=== PATIENT | male | born 1940 | race Caucasian/White ===

== ENCOUNTER 2016-10-11 20:51 | Inpatient (IN) | payer MEDICARE, OTHER ==
[~2016-10-11] VITALS: Ht 177.8 cm; Wt 82.1 kg
[2016-10-11 20:51] VITALS: BP 171/84; PULSE 67; RESP 18; TEMP 98.4; O2SAT 100
[2016-10-11 21:00] VITALS: BP 160/74; PULSE 64; RESP 16; O2SAT 100
[2016-10-11] MEDS ORDERED: FERR325T PO (21:25)
[2016-10-11] MEDS ORDERED: FAMO20TA2 PO (21:25)
[2016-10-11] MEDS ORDERED: POLY99.0 EACH EYE (21:25)
[2016-10-11] MEDS ORDERED: SPIRCAP INH (21:25)
[2016-10-11] MEDS ORDERED: TYLE325T PO (21:25)
[2016-10-11] MEDS ORDERED: TRAM50TA PO (21:25)
[2016-10-11] MEDS ORDERED: IPRASOL INH (21:25)
[2016-10-11] MEDS ORDERED: CYMB60CA PO (21:25)
[2016-10-11] MEDS ORDERED: GLIP5TAB8 PO (21:25)
[2016-10-11] MEDS ORDERED: LISI-519 PO (21:25)
[2016-10-11] MEDS ORDERED: GABA300C5 PO (21:25)
[2016-10-11] MEDS ORDERED: MONT10TA2 PO (21:25)
[2016-10-11] MEDS ORDERED: CARV3.125 PO (21:25)
[2016-10-11] MEDS ORDERED: XARE10TA PO (21:25)
[2016-10-11] MEDS ORDERED: FINA5TAB2 PO (21:25)
[2016-10-11] MEDS ORDERED: LIPI10TA PO (21:25)
[2016-10-11] MEDS ORDERED: LEVE500 PO (21:25)
--- NOTE | 2016-10-11 21:39 | PD ---
HPI Chief Complaint: Altered Mental Status Time Seen by Provider: 21:35 Travel History International Travel<30 days: No Contact w/Intl Traveler<30days: No Traveled to known affect area: No History of Present Illness HPI The patient is a 76-year-old male who was sent from [facility] were is rehabilitating for a left shoulder fracture who became confused and combative. Apparently, his primary care physician wanted blood work done. He has not had any fever. He has not had any nausea, vomiting or diarrhea. He has a history of COPD and is on 2 L nasal cannula continuously. He does have a history of efn-hlycsle-tevjtzisu diabetes. He has had a stroke in the past and is on Xarelto. The patient has had a melanoma removed and radiated on his face approximately 4 years ago. He has been complaining of a headache, he never gets headaches according to the . PFSH Past Medical History Alzheimer's Disease: Yes Anemia: Yes Arthritis: Yes Anxiety: Yes (PTSD: ) Depression: Yes Cancer: Yes (SKIN: MALIGNANT MELANOMA) Cardiac Catheterization: Yes Cardiovascular Problems: Yes (CARDIAC ARREST: Jun) High Cholesterol: Yes Chest Pain: Yes COPD: Yes (WEARS 2-3 LITERS NASAL CANNULA CONTINUOUSLY) Cerebrovascular Accident: Yes (CVA: JANUARY 2016 WITH RESULTING MONOPLEGIA OF RIGHT UPPER LIMB) Coronary Artery Disease: Yes Dementia: Yes Diabetes: Yes Patient Takes Glucophage: No Diverticulitis: Yes GERD: Yes Gout: Yes Genitourinary: Yes (CHRONIC KIDNEY DISEASE) Headaches: Yes Hiatal Hernia: Yes Hypertension: Yes Musculoskeletal: Yes (LEFT SHOULDER FX: 07/24/16, SPINAL STENOSIS) Neurologic: Yes (DYSPHASIA) Parkinson's Disease: Yes Reproductive: Yes (RESPIRATORY FAILURE/HYOXEMIA: SEP 20, 2016) Immunizations Current: Yes (SHINGLES:2015) Myocardial Infarction: Yes (JUN 14, 2016) Radiation Therapy: Yes (HEAD FOR SKIN CANCER) Sleep Apnea: Yes (USES TRILOGY CPAP MACHINE) Tetanus Vaccination: < 5 Years Influenza Vaccination: Yes Past Surgical History Cholecystectomy: Yes Coronary Stent: Yes Eye Surgery: Yes (RIGHT CATARACT) Other Surgery: Yes (HIATAL HERNIA REPAIR) Social History Alcohol Use: No Tobacco Use: No (QUIT CIGARS AND PIPE IN HIS 60'S) Substance Use: No Allergies-Medications (Allergen,Severity, Reaction): Coded Allergies: No Known Allergies (Unverified , 10/11/16) Reported Meds & Prescriptions Reported Meds & Active Scripts Active Reported Duoneb (Ipratropium-Albuterol Neb) 0.5-2.5 Mg/3 Ml Neb 1 Nebule INH Q6HR NEB Coreg (Carvedilol) 3.125 Mg Tab 3.125 Mg PO Q12HR Artificial Tears Opth Drops (Polyvinyl Alcohol) 1.4% Soln 1-2 Drop EACH EYE Q8HR PRN Singulair (Montelukast Sodium) 10 Mg Tab 10 Mg PO DAILY Finasteride 5 Mg Tab 5 Mg PO DAILY Do not crush. Glipizide 5 Mg Tab 5 Mg PO DAILY Take 30 minutes before a meal Spiriva Handihaler (Tiotropium Inh) 18 Mcg Cap 18 Mcg INH DAILY 1 capsule = 18 mcg Lipitor (Atorvastatin Calcium) 10 Mg Tab 10 Mg PO HS Cymbalta DR (Duloxetine HCl) 60 Mg Capdr 60 Mg PO HS Famotidine 20 Mg Tab 20 Mg PO DAILY Lisinopril 5 Mg Tab 5 Mg PO DAILY Gabapentin 300 Mg Cap 300 Mg PO Q8HR Keppra (Levetiracetam) 500 Mg Tab 500 Mg PO Q12HR Xarelto (Rivaroxaban) 10 Mg Tab 10 Mg PO DAILY Tylenol (Acetaminophen) 325 Mg Tab 650 Mg PO Q4H PRN Tramadol (Tramadol HCl) 50 Mg Tab 50 Mg PO Q6H PRN Ferrous Sulfate 325 Mg Tab 325 Mg PO TID Duoneb (Ipratropium-Albuterol Neb) 0.5-2.5 Mg/3 Ml Neb 1 Nebule INH Q6HR NEB Review of Systems Except as stated in HPI: all other systems reviewed are Neg Physical Exam Narrative GENERAL: The patient is elderly, confused to location and still thinks it is 2016. He does answer questions quickly and appropriately. His vital signs show blood pressure 171/84 but are otherwise normal. His oximetry is 100% on 2 L nasal cannula. SKIN: Warm and dry. No skin rash is noted. HEAD: Atraumatic. Normocephalic. EYES: Pupils equal and round. No scleral icterus. No injection or drainage. ENT: No nasal bleeding or discharge. Mucous membranes pink and moist. NECK: Trachea midline. No JVD. CARDIOVASCULAR: Regular rate and rhythm. No murmur appreciated. RESPIRATORY: No accessory muscle use. Clear to auscultation. Breath sounds equal bilaterally. GASTROINTESTINAL: Abdomen soft, non-tender, nondistended. Hepatic and splenic margins not palpable. MUSCULOSKELETAL: No obvious deformities. No clubbing. No cyanosis. No edema. NEUROLOGICAL: Awake and alert. No obvious cranial nerve deficits. Motor grossly within normal limits. Normal speech. PSYCHIATRIC: Appropriate mood and affect; insight and judgment normal. Data Data Last Documented VS Vital Signs Date Time Temp Pulse Resp B/P Pulse Ox O2 Delivery O2 Flow Rate FiO2 10/11/16 23:37 98.3 59 18 156/68 99 Nasal Cannula 2 Orders Complete Blood Count With Diff (10/11/16 21:39) Comprehensive Metabolic Panel (10/11/16 21:39) Ckmb (Isoenzyme) Profile (10/11/16 21:39) Troponin I (10/11/16 21:39) Urinalysis - C+S If Indicated (10/11/16 21:39) Chest, Pa & Lat (10/11/16 21:39) Ct Brain W/O Iv Contrast(Rout) (10/11/16 21:39) Cath For Specimen (10/11/16 22:08) Urine Culture (10/11/16 21:55) Electrocardiogram (10/11/16 ) Labs Laboratory Tests Test 10/11/16 10/11/16 21:00 21:55 White Blood Count 11.8 TH/MM3 Red Blood Count 3.46 MIL/MM3 Hemoglobin 9.9 GM/DL Hematocrit 32.0 % Mean Corpuscular Volume 92.8 FL Mean Corpuscular Hemoglobin 28.7 PG Mean Corpuscular Hemoglobin 30.9 % Concent Red Cell Distribution Width 14.2 % Platelet Count 492 TH/MM3 Mean Platelet Volume 8.6 FL Neutrophils (%) (Auto) 60.7 % Lymphocytes (%) (Auto) 27.9 % Monocytes (%) (Auto) 9.0 % Eosinophils (%) (Auto) 2.0 % Basophils (%) (Auto) 0.4 % Neutrophils # (Auto) 7.2 TH/MM3 Lymphocytes # (Auto) 3.3 TH/MM3 Monocytes # (Auto) 1.1 TH/MM3 Eosinophils # (Auto) 0.2 TH/MM3 Basophils # (Auto) 0.0 TH/MM3 CBC Comment DIFF FINAL Differential Comment Sodium Level 145 MEQ/L Potassium Level 4.1 MEQ/L Chloride Level 106 MEQ/L Carbon Dioxide Level 31.3 MEQ/L Anion Gap 8 MEQ/L Blood Urea Nitrogen 20 MG/DL Creatinine 0.77 MG/DL Estimat Glomerular Filtration 98 ML/MIN Rate Random Glucose 68 MG/DL Calcium Level 9.4 MG/DL Total Bilirubin 0.3 MG/DL Aspartate Amino Transf 20 U/L (AST/SGOT) Alanine Aminotransferase 19 U/L (ALT/SGPT) Alkaline Phosphatase 229 U/L Total Creatine Kinase 64 U/L Troponin I 0.06 NG/ML Total Protein 7.6 GM/DL Albumin 3.1 GM/DL Urine Collection Type CATH Urine Color YELLOW Urine Turbidity CLEAR Urine pH 5.5 Urine Specific [place] 1.019 Urine Protein TRACE mg/dL Urine Glucose (UA) NEG mg/dL Urine Ketones NEG mg/dL Urine Occult Blood TRACE Urine Nitrite NEG Urine Bilirubin NEG Urine Leukocyte Esterase NEG Urine WBC 0-2 /hpf Urine Squamous Epithelial 0-2 /hpf Cells Urine Bacteria RARE /hpf Urine Hyaline Casts 0-2 /lpf Microscopic Urinalysis Comment CULTURE INDICATED MDM Medical Decision Making Medical Screen Exam Complete: Yes Emergency Medical Condition: Yes Medical Record Reviewed: Yes Interpretation(s) The catheterized urine shows trace blood with rare bacteria and culture is indicated. The chest x-ray shows no evidence of acute cardiopulmonary disease. The complete metabolic profile shows a BUN of 20, alkaline phosphatase of 229 , albumin 3.1, glucose of 68 but is otherwise unremarkable. The cardiac enzymes are normal except the troponin I is 0.06. The CT brain shows edema in the right frontal lobe with vasogenic pattern and concern for underlying mass. A vague nodular opacity measuring about 11 mm in size is noted. Slight vasogenic edema is seen in the left frontal lobe. No midline shift is present. The CBC shows a white count of 11,800 with a hemoglobin of 9.9 and hematocrit of 32.0 and 492,000 platelets but is otherwise unremarkable. The EKG shows sinus rhythm with leftward axis and no acute ST elevation or depression. Differential Diagnosis Hypo-/hyperglycemia, electrolyte disorder, CVA, hypoxemiaunlikely urinary tract infection pneumonia, brain tumorunlikely Narrative Course The CT brain is strongly suggestive for a brain tumor. He does have a history of melanoma in the past. The patient also has an elevated troponin I. He is also on Xarelto because of his coronary artery disease. Dr. Rojas specified that the patient be admitted to [facility]. Physician Communication Physician Communication I discussed the patient with Dr. Romo and Dr. Lawson. The patient will be admitted to Dr. Romo with consultation to the [facility]. Diagnosis Primary Impression: Altered mental status Additional Impressions: Brain tumor Elevated troponin I level Admitting Information Admitting Physician Requests: Admit Bakari Morales MD Oct 11, 2016 21:39
[2016-10-11 22:02] LABS: AUTOMATED NEUTROPHIL # 7.2 TH/MM3 (1.8-7.7); BASOPHIL % 0.4 % (0.0-2.0); EOSINOPHIL # 0.2 TH/MM3 (0-0.4); HEMO FLAGS DIFF FINAL; LYMPH % 27.9 % (9.0-44.0); LYMPHOCYTE # 3.3 TH/MM3 (1.0-4.8); MEAN CELL VOLUME 92.8 FL (80.0-100.0); MEAN CORPUSCULAR HEMOGLOBIN 28.7 PG (27.0-34.0); MEAN CORPUSCULAR HGB CONC 30.9 % (32.0-36.0); NEUT % 60.7 % (16.0-70.0); PLATELET COUNT 492 TH/MM3 (150-450); RED BLOOD COUNT 3.46 MIL/MM3 (4.50-5.90); RED CELL DISTRIBUTION WIDTH 14.2 % (11.6-17.2); WHITE BLOOD COUNT 11.8 TH/MM3 (4.0-11.0)
[2016-10-11 22:08] LABS: BLOOD, URINE TRACE (NEG); GLUCOSE,URINE NEG (NEG); KETONE, URINE NEG (NEG); NITRITE,URINE NEG (NEG); PH, URINE 5.5 (5.0-8.5)
[2016-10-11 22:08] LABS: CHLORIDE 106 MEQ/L (98-107); POTASSIUM 4.1 MEQ/L (3.5-5.1); SODIUM (NA) 145 MEQ/L (136-145)
[2016-10-11 22:12] LABS: ANION GAP 8 MEQ/L (5-15); BICARBONATE 31.3 MEQ/L (21.0-32.0)
[2016-10-11 22:13] LABS: BLOOD UREA NITROGEN 20 MG/DL (7-18)
[2016-10-11 22:15] LABS: AST (GOT) 20 U/L (15-37)
[2016-10-11 22:16] LABS: ALT (GPT) 19 U/L (12-78); GLOMERULAR FILTRATION RATE 98 ML/MIN (>89)
[2016-10-11 22:16] LABS: METHOD OF COLLECTION CATH; URINE COLOR YELLOW (YELLW/STRAW)
[2016-10-11 22:17] LABS: TOTAL BILIRUBIN ADULT 0.3 MG/DL (0.2-1.0)
[2016-10-11 22:18] LABS: HYALINE CAST, URINE 0-2 /lpf (RARE); SQUAMOUS EPITHELIAL CELL URINE 0-2 /hpf (0-5); WBC, URINE 0-2 /hpf (0-5)
[2016-10-11 22:18] LABS: ALKALINE PHOSPHATASE 229 U/L (45-117)
[2016-10-11 22:19] LABS: BACTERIA, URINE RARE /hpf; COMMENT (UR) CULTURE INDICATED; CULTURE IF INDICATED CULTURE INDICATED
--- NOTE | 2016-10-11 22:20 | RADHPO ---
EXAM DATE/TIME: 10/11/2016 22:02 [facility] COMPARISON: No previous studies available for comparison. INDICATIONS : Confusion; altered mental status. RADIATION DOSE: 62.00 CTDIvol (mGy) MEDICAL HISTORY : Hypertension. Stroke SURGICAL HISTORY : None. ENCOUNTER: Initial ACUITY: 1 day PAIN SCALE: 0/10 LOCATION: cranial TECHNIQUE: Multiple contiguous axial images were obtained of the head. Using automated exposure control and adj ustment of the mA and/or kV according to patient size, radiation dose was kept as low as reasonably a chievable to obtain optimal diagnostic quality images. FINDINGS: There is edema in the right frontal lobe with a vasogenic pattern and of concern for an underlying ma ss. A vague nodular opacity measuring about 11 mm in size is noted. Slight vasogenic edema seen in th e left frontal lobe. No midline shift. No bleed. No perceptible ischemic changes. CONCLUSION: Bifrontal vasogenic edema of concern for underlying mass(es), especially on the right. No hemorrhage or midline shift. Nonemergent MRI of the brain with and without contrast recommended. Russel Schofield MD on October 11, 2016 at 22:17 Board Certified Radiologist. This report was verified electronically.
[2016-10-11 22:24] LABS: CREATINE KINASE 64 U/L (39-308)
--- NOTE | 2016-10-11 22:35 | RADHPO ---
EXAM DATE/TIME: 10/11/2016 22:12 [facility] COMPARISON: No previous studies available for comparison. INDICATIONS : Cough MEDICAL HISTORY : Hypertension. Stroke. SURGICAL HISTORY : Unknown ENCOUNTER: Initial ACUITY: 1 day PAIN SCORE: Non-responsive. LOCATION: Bilateral chest FINDINGS: PA and lateral views of the chest demonstrate the lungs to be symmetrically aerated without evidence of mass, infiltrate or effusion. The cardiomediastinal contours are unremarkable. Osseous structure s are intact. CONCLUSION: No evidence of acute cardiopulmonary disease. Russel Schofield MD on October 11, 2016 at 22:33 Board Certified Radiologist. This report was verified electronically.
[2016-10-11 23:37] VITALS: BP 156/68; PULSE 59; RESP 18; TEMP 98.3; O2SAT 99
[2016-10-12] VITALS (17 sets, daily range): BP systolic 115–191; BP diastolic 58–80; PULSE 52–78; RESP 14–20; TEMP 97.8–98.6; O2SAT 96–100
[2016-10-12] MEDS ORDERED: ACETAMINOPHEN/HYDROcodone 325 MG/10 MG TAB PO PRN (00:30)
[2016-10-12] MEDS ORDERED: ARTIFICIAL TEARS OPTH SOLN 15 ML BTL EACH EYE PRN (00:30)
[2016-10-12] MEDS ORDERED: NALOXONE HCL 0.4 MG/ML AMP IV PRN (00:30)
[2016-10-12] MEDS ORDERED: ACETAMINOPHEN/HYDROcodone 325 MG/5 MG TAB PO PRN (00:30)
[2016-10-12] MEDS ORDERED: LABETALOL HCL 100 MG/20 ML VIAL IV PRN (00:30)
[2016-10-12] MEDS ORDERED: PROMETHAZINE INJ 25 MG/ML VIAL IM PRN (00:30)
[2016-10-12] MEDS ORDERED: ONDANSETRON HCL 4 MG/2 ML VIAL IV PRN (00:30)
[2016-10-12] MEDS ORDERED: SODIUM CHLORIDE 0.9% FLUSH 5 ML FLUSH IVF PRN (00:30)
[2016-10-12] MEDS ORDERED: ACETAMINOPHEN 325 MG TAB PO PRN (00:30)
--- NOTE | 2016-10-12 00:43 | HHI.HP ---
HPI Service Neurosurgery Primary Care Physician Philipp Link MD History of Present Illness 76-year-old male transferred to [facility] emergency room due to onset of confusion today. Patient has been at [facility] due to a upper extremity fracture. Positive history of diabetes and COPD. History of melanoma Past Family Social History Allergies: Coded Allergies: No Known Allergies (Unverified , 10/11/16) Physical Exam Vital Signs Vital Signs Date Time Temp Pulse Resp B/P Pulse Ox O2 Delivery O2 Flow Rate FiO2 10/11/16 23:37 98.3 59 18 156/68 99 Nasal Cannula 2 10/11/16 21:00 64 16 160/74 100 Nasal Cannula 2 10/11/16 20:51 98.4 67 18 171/84 100 10/11/16 20:51 67 Nasal Cannula 2 Laboratory Laboratory Tests Test 10/11/16 10/11/16 21:00 21:55 White Blood Count 11.8 Red Blood Count 3.46 Hemoglobin 9.9 Hematocrit 32.0 Mean Corpuscular Volume 92.8 Mean Corpuscular Hemoglobin 28.7 Mean Corpuscular Hemoglobin 30.9 Concent Red Cell Distribution Width 14.2 Platelet Count 492 Mean Platelet Volume 8.6 Neutrophils (%) (Auto) 60.7 Lymphocytes (%) (Auto) 27.9 Monocytes (%) (Auto) 9.0 Eosinophils (%) (Auto) 2.0 Basophils (%) (Auto) 0.4 Neutrophils # (Auto) 7.2 Lymphocytes # (Auto) 3.3 Monocytes # (Auto) 1.1 Eosinophils # (Auto) 0.2 Basophils # (Auto) 0.0 CBC Comment DIFF FINAL Differential Comment Sodium Level 145 Potassium Level 4.1 Chloride Level 106 Carbon Dioxide Level 31.3 Anion Gap 8 Blood Urea Nitrogen 20 Creatinine 0.77 Estimat Glomerular Filtration 98 Rate Random Glucose 68 Calcium Level 9.4 Total Bilirubin 0.3 Aspartate Amino Transf 20 (AST/SGOT) Alanine Aminotransferase 19 (ALT/SGPT) Alkaline Phosphatase 229 Total Creatine Kinase 64 Troponin I 0.06 Total Protein 7.6 Albumin 3.1 Urine Collection Type CATH Urine Color YELLOW Urine Turbidity CLEAR Urine pH 5.5 Urine Specific [place] 1.019 Urine Protein TRACE Urine Glucose (UA) NEG Urine Ketones NEG Urine Occult Blood TRACE Urine Nitrite NEG Urine Bilirubin NEG Urine Leukocyte Esterase NEG Urine WBC 0-2 Urine Squamous Epithelial 0-2 Cells Urine Bacteria RARE Urine Hyaline Casts 0-2 Microscopic Urinalysis Comment CULTURE INDICATED Date/Time Procedure Status Source Growth 10/11/16 21:55 Urine Culture Received Urine Catheterized Urine Pending Result Diagram: 10/11/16 2100 10/11/16 2100 Imaging 10/11/2016 CT scan head images reviewed. The study reveals a right frontal lobe mass with moderate surrounding vasogenic edema. No significant midline shift. Findings most consistent with metastatic neoplasm. Assessment and Plan Assessment and Plan Impression: 1. Probable right frontal lobe metastatic neoplasm in patient with prior history of melanoma. 2. COPD 3. Diabetes 4. Hypertension 5. Mild elevation troponin 1 Plan: Admit intensive surgical care unit MRI brain with and without contrast Continue present medications for diabetes, hypertension Medical consultation Santy Romo MD Oct 12, 2016 00:43
[2016-10-12] MEDS ORDERED: GLUCAGON 1 MG/ML VIAL OTHER PRN (00:45)
[2016-10-12] MEDS ORDERED: DEXTROSE 50% IN WATER 50 ML VIAL(D50) IV PUSH PRN (00:45)
[2016-10-12] MEDS ORDERED: PILL SPLITTER OTHER PRN (00:45)
[2016-10-12] MEDS: D5-NS + KCL 20 MEQ INJ 1,000 ML IV SCH ×2 (01:09→22:20)
[2016-10-12] MEDS: RESP: ALBUTEROL 2.5 MG/IPRATROPIUM 0.5 MG NEB (SCH) INH ×4 (04:28→21:42)
[2016-10-12] MEDS: GABAPENTIN 300 MG CAP PO SCH ×3 (05:53→21:19)
[2016-10-12] MEDS: cloNIDine HCL 0.1 MG TAB PO PRN (06:40)
[2016-10-12] MEDS: INSULIN NovoLIN REGULAR SUPPLEMENTAL SCALE SQ SCH ×4 (07:00→21:00)
[2016-10-12] MEDS: amLODIPine BESYLATE 5 MG TAB PO SCH (09:00)
[2016-10-12] MEDS: LISINOPRIL 5 MG TAB PO SCH (09:00)
[2016-10-12] MEDS: FERROUS SULFATE 325 MG (65 MG ELEMENTAL IRON) TAB PO SCH ×3 (09:39→18:00)
[2016-10-12] MEDS: glipiZIDE 5 MG TAB PO SCH (09:39)
[2016-10-12] MEDS: FINASTERIDE 5 MG TAB PO SCH (09:39)
[2016-10-12] MEDS: CARVEDILOL 3.125 MG TAB PO SCH ×2 (09:39→21:19)
[2016-10-12] MEDS: TIOTROPIUM BROMIDE 18 MCG INH INH SCH (09:40)
[2016-10-12] MEDS: DOCUSATE SODIUM 100 MG CAP PO SCH ×2 (09:41→21:19)
[2016-10-12] MEDS: PANTOPRAZOLE SOD 40 MG DELAYED RELEASE TAB PO SCH (09:43)
[2016-10-12] MEDS: levETIRAcetam 500 MG TAB PO SCH ×2 (10:18→21:19)
[2016-10-12] MEDS: MONTELUKAST SODIUM 10 MG TAB PO SCH (10:18)
[2016-10-12] MEDS: SODIUM CHLORIDE 0.9% FLUSH 5 ML FLUSH IVF SCH ×2 (10:19→21:00)
[2016-10-12] MEDS ORDERED: LORazepam 2 MG/ML VIAL IV PUSH PRN (15:00)
--- NOTE | 2016-10-12 17:27 | PD.CONS ---
HPI Service [facility] Consult Requested By Dr. Romo Reason for Consult Medical management Primary Care Physician Philipp Link MD Diagnoses: History of Present Illness This is a pleasant 76-year-old male with a complicated past medical history including previous stroke, diabetes, cardiac arrest in June of last year, left shoulder fracture several weeks ago which is being managed nonoperatively. Due to the patient's altered mental status history was mainly obtained from the patient's was at bedside. The patient has been rehabbing at [facility] rehabilitation went over the past several days he started to have confusion and agitation. Normally he is quite mentally sharp as per his . The patient has also been complaining of headaches intermittently which is not typical for him. In the emergency department a head CT showed that he had bifrontal vasogenic edema and concern for an underlying mass especially on the right however there was no hemorrhage or midline shift. A brain MRI has been ordered. The patient is admitted to the neurosurgical service under Dr. Rojas and is to be transferred to [facility] however he has been awaiting a bed all day today. Of note the patient does have history of extensive melanoma removal including one removed from his scalp. He also has a large melanoma on his right anterior forearm which was supposed to be removed however the says due to his numerous health issues that had to be put on hold. The patient and his live in [place] and she states that normally he is hospitalized at [facility]. Review of Systems ROS Limitations: Altered Mental Status Constitutional: DENIES: Weight gain, Weight loss Ears, nose, mouth, throat: DENIES: Throat pain, Hoarseness Respiratory: DENIES: Cough, Shortness of breath Cardiovascular: DENIES: Chest pain, Dyspnea on Exertion Gastrointestinal: DENIES: Abdominal pain, Vomiting Genitourinary: DENIES: Hematuria, Dysuria Musculoskeletal: DENIES: Back pain, Neck pain Integumentary: DENIES: Rash Neurologic: COMPLAINS OF: Headache, Localized weakness Psychiatric: COMPLAINS OF: Confusion, DENIES: Anxiety Past Family Social History Allergies: Coded Allergies: No Known Allergies (Unverified , 10/11/16) Past Medical History History of stroke with residual right upper extremity weakness on Xarelto COPD with chronic respiratory failure on 2 L oxygen continuously Type 2 diabetes Diabetic peripheral neuropathy Benign prostatic hypertrophy Hypertension History of seizure - takes Keppra Recent left shoulder fracture being treated nonoperatively History of cardiac arrest June 2016 Coronary artery disease with history of 2 stents Peripheral vascular disease status post bilateral carotid endarterectomy Chronic anemia Reported Medications Allergies Coded Allergies Type Severity Reaction Last Updated Verified No Known Allergies 10/11/16 No Active Scripts Medications Dose Route/Sig Days Date Category Dose Instructions Duoneb (Ipratropium-Albuterol Neb) 0.5-2.5 Mg/3 Ml Neb 1 Nebule INH Q6HR NEB 10/11/16 Reported Coreg (Carvedilol) 3.125 Mg Tab 3.125 Mg PO Q12HR 10/11/16 Reported Artificial Tears Opth Drops (Polyvinyl Alcohol) 1.4% Soln 1-2 Drop EACH EYE Q8HR PRN 10/11/16 Reported Singulair (Montelukast Sodium) 10 Mg Tab 10 Mg PO DAILY 10/11/16 Reported Finasteride 5 Mg Tab 5 Mg PO DAILY 10/11/16 Reported Do not crush. Glipizide 5 Mg Tab 5 Mg PO DAILY 10/11/16 Reported Take 30 minutes before a meal Spiriva Handihaler (Tiotropium Inh) 18 Mcg Cap 18 Mcg INH DAILY 10/11/16 Reported 1 capsule = 18 mcg Lipitor (Atorvastatin Calcium) 10 Mg Tab 10 Mg PO HS 10/11/[address] (Duloxetine HCl) 60 Mg Capdr 60 Mg PO HS 10/11/16 Reported Famotidine 20 Mg Tab 20 Mg PO DAILY 10/11/16 Reported Lisinopril 5 Mg Tab 5 Mg PO DAILY 10/11/16 Reported Gabapentin 300 Mg Cap 300 Mg PO Q8HR 10/11/16 Reported Keppra (Levetiracetam) 500 Mg Tab 500 Mg PO Q12HR 10/11/16 Reported Xarelto (Rivaroxaban) 10 Mg Tab 10 Mg PO DAILY 10/11/16 Reported Tylenol (Acetaminophen) 325 Mg Tab 650 Mg PO Q4H PRN 10/11/16 Reported Tramadol (Tramadol HCl) 50 Mg Tab 50 Mg PO Q6H PRN 10/11/16 Reported Ferrous Sulfate 325 Mg Tab 325 Mg PO TID 10/11/16 Reported Duoneb (Ipratropium-Albuterol Neb) 0.5-2.5 Mg/3 Ml Neb 1 Nebule INH Q6HR NEB 10/11/16 Reported Family History Reviewed and noncontributory Social History No history of alcohol tobacco or drug use. Physical Exam Vital Signs Vital Signs Date Time Temp Pulse Resp B/P Pulse Ox O2 Delivery O2 Flow Rate FiO2 10/12/16 13:42 14 148/65 Nasal Cannula 2 10/12/16 11:44 64 20 115/58 98 Nasal Cannula 2 10/12/16 11:34 58 20 98 10/12/16 10:05 57 16 142/69 98 Nasal Cannula 2 10/12/16 10:00 62 18 98 Nasal Cannula 2 10/12/16 09:27 97 Nasal Cannula 1.50 10/12/16 09:00 57 16 133/69 98 Nasal Cannula 2 10/12/16 08:15 61 16 129/62 98 Nasal Cannula 2 10/12/16 08:00 63 16 98 Nasal Cannula 2 10/12/16 07:10 98.0 59 16 166/79 98 Nasal Cannula 2 10/12/16 07:10 59 16 98 Nasal Cannula 2 10/12/16 06:38 55 18 178/71 100 Nasal Cannula 2 10/12/16 05:30 78 18 147/71 97 Nasal Cannula 2 10/12/16 04:33 55 Nasal Cannula 2 10/12/16 04:28 98 Nasal Cannula 2.00 10/12/16 04:28 98.6 55 20 153/68 98 Nasal Cannula 2 10/12/16 03:30 68 16 164/80 98 Nasal Cannula 2 10/12/16 02:30 56 18 167/73 98 Nasal Cannula 2 10/12/16 01:30 53 20 161/73 96 Nasal Cannula 2 10/11/16 23:37 98.3 59 18 156/68 99 Nasal Cannula 2 10/11/16 21:00 64 16 160/74 100 Nasal Cannula 2 10/11/16 20:51 98.4 67 18 171/84 100 10/11/16 20:51 67 Nasal Cannula 2 Physical Exam GENERAL: Well-nourished, well-developed pleasant elderly male patient. Common cooperative. SKIN: Warm and dry. He has a large raised area of dark purple discoloration on his anterior right forearm which is suspicious for melanoma. HEAD: Normocephalic. EYES: No scleral icterus. No injection or drainage. NECK: Supple, trachea midline. No JVD or lymphadenopathy. CARDIOVASCULAR: Regular rate and rhythm without murmurs, gallops, or rubs. RESPIRATORY: Breath sounds equal bilaterally. No accessory muscle use. GASTROINTESTINAL: Abdomen soft, non-tender, nondistended. EXTREMITIES: No cyanosis, or edema. NEUROLOGICAL: Awake, alert, and oriented to self but not month. Laboratory Laboratory Tests Test 10/11/16 10/11/16 21:00 21:55 White Blood Count 11.8 Red Blood Count 3.46 Hemoglobin 9.9 Hematocrit 32.0 Mean Corpuscular Volume 92.8 Mean Corpuscular Hemoglobin 28.7 Mean Corpuscular Hemoglobin 30.9 Concent Red Cell Distribution Width 14.2 Platelet Count 492 Mean Platelet Volume 8.6 Neutrophils (%) (Auto) 60.7 Lymphocytes (%) (Auto) 27.9 Monocytes (%) (Auto) 9.0 Eosinophils (%) (Auto) 2.0 Basophils (%) (Auto) 0.4 Neutrophils # (Auto) 7.2 Lymphocytes # (Auto) 3.3 Monocytes # (Auto) 1.1 Eosinophils # (Auto) 0.2 Basophils # (Auto) 0.0 CBC Comment DIFF FINAL Differential Comment Sodium Level 145 Potassium Level 4.1 Chloride Level 106 Carbon Dioxide Level 31.3 Anion Gap 8 Blood Urea Nitrogen 20 Creatinine 0.77 Estimat Glomerular Filtration 98 Rate Random Glucose 68 Calcium Level 9.4 Total Bilirubin 0.3 Aspartate Amino Transf 20 (AST/SGOT) Alanine Aminotransferase 19 (ALT/SGPT) Alkaline Phosphatase 229 Total Creatine Kinase 64 Troponin I 0.06 Total Protein 7.6 Albumin 3.1 Urine Collection Type CATH Urine Color YELLOW Urine Turbidity CLEAR Urine pH 5.5 Urine Specific [place] 1.019 Urine Protein TRACE Urine Glucose (UA) NEG Urine Ketones NEG Urine Occult Blood TRACE Urine Nitrite NEG Urine Bilirubin NEG Urine Leukocyte Esterase NEG Urine WBC 0-2 Urine Squamous Epithelial 0-2 Cells Urine Bacteria RARE Urine Hyaline Casts 0-2 Microscopic Urinalysis Comment CULTURE INDICATED Date/Time Procedure Status Source Growth 10/11/16 21:55 Urine Culture Received Urine Catheterized Urine Pending Result Diagram: 10/11/16209910/11/162099 Imaging Last Impressions Head CT 10/11/162138 Signed Impressions: Service Date/Time: Tuesday, October 11, 2016 22:02 - CONCLUSION: Bifrontal vasogenic edema of concern for underlying mass(es), especially on the right. No hemorrhage or midline shift. Nonemergent MRI of the brain with and without contrast recommended. Russel Schofield MD Chest X-Ray 10/11/162138 Signed Impressions: Service Date/Time: Tuesday, October 11, 2016 22:12 - CONCLUSION: No evidence of acute cardiopulmonary disease. Russel Schofield MD Assessment and Plan Assessment and Plan - Abnormal head CT showing bifrontal vasogenic edema with possible mass in the left frontal lobe. He is admitted to neurosurgery/Dr. Romo. Brain MRI has been ordered. He is on Keppra for seizure prophylaxis. I will start Decadron for the edema. -Altered mental status likely secondary to the vasogenic edema seen on head CT. Reorient. -Mildly elevated troponin of 0.06. Nonspecific in the setting of no chest pain. No workup at this time due to the ongoing shrivel edema. Unless he develops symptoms. -History of stroke with residual right upper extremity weakness on Xarelto - hold Xarelto at this time per neurosurgery. -COPD with chronic respiratory failure on 2 L oxygen continuously - continue duo nebs as needed and oxygen. Continue Spiriva. -Type 2 diabetes - I will hold his glipizide while he is inpatient and start him on Levemir as he will be on Decadron was likely elevated blood sugars. -Diabetic peripheral neuropathy - continue Neurontin. -Hypertension. Continue lisinopril, Norvasc and Coreg. -Depression. Continue Cymbalta. -Recent left shoulder fracture being treated nonoperatively -History of cardiac arrest June 2016 -Coronary artery disease with history of 2 stents - currently he is not on aspirin as reported at [facility] rehabilitation. He is on Xarelto for the history of stroke. This is being held by neurosurgery. Hold Lipitor as well due to association with intracerebral hemorrhage. -Chronic anemia -continue ferrous sulfate and repeat a CBC in the morning. -DVT prophylaxis with SCDs. Nila Cheek MD Oct 12, 2016 17:27
[2016-10-12] MEDS: DULoxetine HCl DR 60 MG CAP PO SCH (21:19)
--- NOTE | 2016-10-12 23:46 | EKG ---
Date Performed: 10/11/2016 Time Performed: 23:30:36 PTAGE: 76 years EKG: Sinus rhythm with borderline 1st degree A-V block Leftward axis Lateral T wave changes are nonspecific Borderline ECG PREVIOUS TRACING : 05/01/1996 13.48 DOCTOR: Renae Estes Interpretating Date/Time 10/12/2016 23:41:54
[2016-10-13] VITALS (10 sets, daily range): BP systolic 112–180; BP diastolic 58–76; PULSE 60–78; RESP 18–20; TEMP 96.3–97.9; O2SAT 91–99
[2016-10-13] MEDS: RESP: ALBUTEROL 2.5 MG/IPRATROPIUM 0.5 MG NEB (SCH) INH ×4 (03:00→21:04)
[2016-10-13] MEDS: GABAPENTIN 300 MG CAP PO SCH ×3 (05:53→23:48)
[2016-10-13] MEDS: INSULIN NovoLIN REGULAR SUPPLEMENTAL SCALE SQ SCH ×4 (06:10→21:00)
[2016-10-13] MEDS: TIOTROPIUM BROMIDE 18 MCG INH INH SCH (09:00)
[2016-10-13 09:24] LABS: BASOPHIL % 0.1 % (0.0-2.0); EOSINOPHIL # 0.2 TH/MM3 (0-0.4); EOSINOPHIL % 1.8 % (0.0-4.0); HEMATOCRIT 32.9 % (39.0-51.0); HEMO FLAGS DIFF FINAL; LYMPH % 23.1 % (9.0-44.0); LYMPHOCYTE # 2.8 TH/MM3 (1.0-4.8); MEAN CELL VOLUME 93.4 FL (80.0-100.0); MEAN CORPUSCULAR HEMOGLOBIN 29.8 PG (27.0-34.0); MEAN CORPUSCULAR HGB CONC 31.9 % (32.0-36.0); MONO % 8.2 % (0.0-8.0); NEUT % 66.8 % (16.0-70.0); PLATELET COUNT 396 TH/MM3 (150-450); RED BLOOD COUNT 3.52 MIL/MM3 (4.50-5.90); RED CELL DISTRIBUTION WIDTH 14.8 % (11.6-17.2)
[2016-10-13] MEDS ORDERED: DIATRIZOATE MEGLUM/DIATRIZOATE SOD 9 ML CUP PO ONE (09:30)
[2016-10-13 09:31] LABS: APTT (PATIENT) 26.7 SEC (24.3-30.1)
[2016-10-13 09:49] LABS: BICARBONATE 31.3 MEQ/L (21.0-32.0); POTASSIUM 3.9 MEQ/L (3.5-5.1)
[2016-10-13] MEDS: LISINOPRIL 5 MG TAB PO SCH (10:42)
[2016-10-13] MEDS: amLODIPine BESYLATE 5 MG TAB PO SCH (10:42)
[2016-10-13] MEDS: glipiZIDE 5 MG TAB PO SCH (10:42)
[2016-10-13] MEDS: DOCUSATE SODIUM 100 MG CAP PO SCH ×2 (10:42→23:47)
[2016-10-13] MEDS: FERROUS SULFATE 325 MG (65 MG ELEMENTAL IRON) TAB PO SCH ×3 (10:43→18:09)
[2016-10-13] MEDS: levETIRAcetam 500 MG TAB PO SCH ×2 (10:43→23:48)
[2016-10-13] MEDS: MONTELUKAST SODIUM 10 MG TAB PO SCH (10:43)
[2016-10-13] MEDS: CARVEDILOL 3.125 MG TAB PO SCH ×2 (10:43→23:48)
[2016-10-13] MEDS: PANTOPRAZOLE SOD 40 MG DELAYED RELEASE TAB PO SCH (10:43)
[2016-10-13] MEDS: FINASTERIDE 5 MG TAB PO SCH (10:43)
[2016-10-13] MEDS: SODIUM CHLORIDE 0.9% FLUSH 5 ML FLUSH IVF SCH ×2 (10:44→23:49)
[2016-10-13] MEDS: cefTRIAXone INJ 1,000 MG in SODIUM CHLORIDE 0.9% INJ 100 ML IV SCH (12:00)
[2016-10-13] MEDS: LORazepam 2 MG/ML VIAL IV PUSH PRN ×2 (15:16→18:10)
[2016-10-13] MEDS ORDERED: IOHEXOL 350 MG/ML 10 ML VIAL (for RAD DIAG) IV ONE (15:42)
[2016-10-13] MEDS ORDERED: GADODIAMIDE PF 287 MG/ML 20 ML VIAL (for RAD MRI) IV ONE (16:00)
--- NOTE | 2016-10-13 16:23 | RADRPT ---
EXAM DATE/TIME: 10/13/2016 15:27 [facility] COMPARISON: No previous studies available for comparison. INDICATIONS: AMS and brain tumor. IV CONTRAST: 91 cc Omnipaque 350 (iohexol) IV RADIATION DOSE: 23.52 CTDIvol (mGy) MEDICAL HISTORY: Parkinson's. Cardiovascular disease Hypertension. SURGICAL HISTORY: Cholecystectomy. Inguinal hernia repair. ENCOUNTER: Subsequent ACUITY: 2 days PAIN SCALE: 3/10 LOCATION: Chest TECHNIQUE: Volumetric scanning of the chest was performed. Using automated exposure control and adjustment of t he mA and/or kV according to patient size, radiation dose was kept as low as reasonably achievable to obtain optimal diagnostic quality images. FINDINGS: There are no suspicious lung lesions identified. Calcified pleural plaques are seen in the right base . There is sclerotization around the subclavian vein, nonspecific. There is no axillary or mediastinal adenopat hy. Marked coronary calcification is noted. CONCLUSION: I do not see evidence for a primary or metastatic disease to the chest. Subclavian vein stenosis on the right as described above. Chad Iqbal MD FACR on October 13, 2016 at 16:06 Board Certified Radiologist. This report was verified electronically.
--- NOTE | 2016-10-13 16:25 | RADRPT ---
EXAM DATE/TIME: 10/13/2016 15:27 [facility] COMPARISON: No previous studies available for comparison. INDICATIONS: AMS and history of brain tumor. IV CONTRAST: 91 cc Omnipaque 350 (iohexol) IV ; Cumulative dose for multiple exams. ORAL CONTRAST: Prescribed oral contrast ingested. RADIATION DOSE: 23.52 CTDIvol (mGy) MEDICAL HISTORY: Parkinson's. Cardiovascular disease Hypertension. SURGICAL HISTORY: Cholecystectomy. Inguinal hernia repair. ENCOUNTER: Subsequent ACUITY: 2 days PAIN SCALE: 3/10 LOCATION: Bilateral lower quadrant TECHNIQUE: Volumetric scanning of the abdomen and pelvis was performed. Using automated exposure control and ad justment of the mA and/or kV according to patient size, radiation dose was kept as low as reasonably achievable to obtain optimal diagnostic quality images. FINDINGS: Lung bases are clear. The liver is free of focal defects. Spleen, pancreas, adrenals and kidneys ar e unremarkable. I do not see evidence for a solid organ tumor. In the pelvis bladder and seminal vesicles are unremarkable. There is no adenopathy. There are degenerative changes in the lumbar spine without evidence for metastatic disease. CONCLUSION: I do not see evidence for primary neoplasm. Chad Iqbal MD FACR on October 13, 2016 at 15:56 Board Certified Radiologist. This report was verified electronically.
[2016-10-13] MEDS ORDERED: LORazepam 2 MG/ML VIAL IV PUSH ONE (17:30)
--- NOTE | 2016-10-13 17:57 | RADRPT ---
EXAM DATE/TIME: 10/13/2016 15:40 [facility] COMPARISON: No previous studies available for comparison. INDICATIONS : Mass. CONTRAST: 16 cc Omniscan (gadodiamide) IV MEDICAL HISTORY : Hypertension. Diabetes mellitus type 2. Melanoma. SURGICAL HISTORY : Cholecystectomy. Carotid endarterectomy. Hiatal hernia. ENCOUNTER: Subsequent ACUITY: 1 day PAIN SCORE: 0/10 LOCATION: head. TECHNIQUE: Multiplanar, multisequence MRI of the brain was performed both prior to and following the administrat ion of paramagnetic contrast. FINDINGS: There is an approximately 2.9 x 2.8 cm mass in the right frontal lobe with surrounding vasogenic josé a and mild mass effect and minimal midline shift in the frontal region. Mass has some intrinsic incre ased T1 signal which may represent some associated hemorrhage. No mass is identified in the left gary sphere. They are mild ischemic changes in the periventricular white matter. There is a small area of signal abnormality in the left parietal cortex and peripheral left occipital cortex. CONCLUSION: 1. Enhancing 2.9 cm mass in right frontal lobe possibly associated with some hemorrhage with surround ing vasogenic edema and mild mass effect as above. 2. There are 2 small areas of signal abnormality in the left parietal lobe and left occipital lobe pe ripherally of uncertain etiology but possibly related to prior small infarcts. Tom Bell MD on October 13, 2016 at 17:48 Board Certified Radiologist. This report was verified electronically.
--- NOTE | 2016-10-13 18:04 | RADRPT ---
EXAM DATE/TIME: 10/13/2016 15:40 [facility] COMPARISON: No previous studies available for comparison. INDICATIONS : Myelopathy. MEDICAL HISTORY : Hypertension. Diabetes mellitus type 2. Melanoma. SURGICAL HISTORY : Cholecystectomy. Carotid endarterectomy. ENCOUNTER: Subsequent ACUITY: 2 day PAIN SCORE: 0/10 LOCATION: neck. TECHNIQUE: Multiplanar, multisequence MRI examination of the cervical spine was performed. FINDINGS: The exam is degraded by motion artifact. There is straightening of the normal cervical lordosis. Ther e is a broad-based posterior disc osteophyte complex at every level between C2 and T1 resulting in at least mild AP canal stenosis and small impressions on the anterior surface of the cord. There is a q uestionable cord signal abnormality at C3-4 but this is not definitely confirmed on other images whic h are also degraded by motion artifact. CONCLUSION: 1. Exam degraded by motion artifact. Straightening of cervical lordosis with at least mild AP canal s tenosis at every level between C2 and T1 and mild impressions on the anterior surface of the cord. Questionable small cord signal abnormality at C3-4, possibly edema or myelomalacia. Tom Bell MD on October 13, 2016 at 17:56 Board Certified Radiologist. This report was verified electronically.
--- NOTE | 2016-10-13 20:27 | HHI.HP ---
[facility] Primary Care Physician Philipp Link MD History of Present Illness 76-year-old male transferred to [facility] emergency room due to onset of confusion today. Patient has been at [facility] due to a upper extremity fracture. Positive history of diabetes and COPD. History of melanoma. He complains of progressive numbness in his upper extremities. Also progressive gait difficulty. He feels off balance when he ambulates, but no vertigo. He denies any recent falls. He complains of a primarily right frontal headache. No significant dizziness. No blurred vision or diplopia. Review of Systems ROS Limitations: Altered Mental Status Constitutional: DENIES: Fever, Weight gain, Weight loss, Dizziness Eyes: DENIES: Blurred vision, Diplopia Ears, nose, mouth, throat: DENIES: Tinnitus, Hearing loss, Vertigo Respiratory: DENIES: Cough Cardiovascular: DENIES: Chest pain, Palpitations Gastrointestinal: DENIES: Abdominal pain, Black stools, Diarrhea, Nausea Genitourinary: DENIES: Urinary incontinence Musculoskeletal: COMPLAINS OF: Joint pain, Muscle aches Neurologic: COMPLAINS OF: Abnormal gait, Headache, Poor Balance Psychiatric: COMPLAINS OF: Confusion Past Family Social History Allergies: Coded Allergies: No Known Allergies (Unverified , 10/11/16) Past Medical History Type 2 diabetes History of melanoma COPD Previous CVA-on Xarelto Hypertension Coronary artery disease Peripheral vascular disease Dyslipidemia Prostate hypertrophy Mild peripheral neuropathy Past Surgical History Previous resection melanoma of the scalp. Right upper extremity melanoma resection pending. Cardiac stent 2 Seizure disorder Reported Medications Reported Meds & Active Scripts Active Reported Duoneb (Ipratropium-Albuterol Neb) 0.5-2.5 Mg/3 Ml Neb 1 Nebule INH Q6HR NEB Coreg (Carvedilol) 3.125 Mg Tab 3.125 Mg PO Q12HR Artificial Tears Opth Drops (Polyvinyl Alcohol) 1.4% Soln 1-2 Drop EACH EYE Q8HR PRN Singulair (Montelukast Sodium) 10 Mg Tab 10 Mg PO DAILY Finasteride 5 Mg Tab 5 Mg PO DAILY Do not crush. Glipizide 5 Mg Tab 5 Mg PO DAILY Take 30 minutes before a meal Spiriva Handihaler (Tiotropium Inh) 18 Mcg Cap 18 Mcg INH DAILY 1 capsule = 18 mcg Lipitor (Atorvastatin Calcium) 10 Mg Tab 10 Mg PO HS Cymbalta DR (Duloxetine HCl) 60 Mg Capdr 60 Mg PO HS Famotidine 20 Mg Tab 20 Mg PO DAILY Lisinopril 5 Mg Tab 5 Mg PO DAILY Gabapentin 300 Mg Cap 300 Mg PO Q8HR Keppra (Levetiracetam) 500 Mg Tab 500 Mg PO Q12HR Xarelto (Rivaroxaban) 10 Mg Tab 10 Mg PO DAILY Tylenol (Acetaminophen) 325 Mg Tab 650 Mg PO Q4H PRN Tramadol (Tramadol HCl) 50 Mg Tab 50 Mg PO Q6H PRN Ferrous Sulfate 325 Mg Tab 325 Mg PO TID Duoneb (Ipratropium-Albuterol Neb) 0.5-2.5 Mg/3 Ml Neb 1 Nebule INH Q6HR NEB Family History Negative cancer, diabetes, cardiac disease Social History Has been recently again a nursing facility due to upper extremity fracture. Otherwise lives with his . No alcohol or tobacco use. Physical Exam Vital Signs Vital Signs Date Time Temp Pulse Resp B/P Pulse Ox O2 Delivery O2 Flow Rate FiO2 10/13/16 12:04 98 Nasal Cannula 2.00 10/13/16 12:00 97.9 65 18 180/72 99 10/13/16 08:00 96.4 67 18 112/58 91 10/13/16 04:00 96.3 63 20 153/72 95 10/13/16 02:00 72 10/13/16 00:00 97.6 72 20 122/59 98 10/12/16 21:45 99 Nasal Cannula 2.00 10/12/16 20:56 97.8 75 18 191/80 100 Physical Exam Pleasant elderly gentleman in no apparent distress Oxygen mask in place HEENT: Poor dentition. Oropharynx clear. External auditory canal clear. No facial edema or ecchymosis. Neck: Nontender. Normal range of motion without discomfort Respirations clear, regular, no wheeze Cardiac: Regular without murmur No carotid bruit Abdomen: Soft and nontender. No hepatosplenomegaly Extremities: No significant extremity edema. Dorsalis pedis pulse 2+ bilateral Musculoskeletal: No long bone or joint deformity noted Skin: Prominent area of edema and ecchymosis right mid anterior forearm Neurologic: Awake and alert Cooperative No evidence of anxiety or depression Speech is somewhat slow but clear Oriented to hospital, [place], month and year. Otherwise exhibits at least mild confusion regarding recent events involving his health Follow simple commands well Answers questions appropriately Limited judgment and insight Pupils 3 mm minimally reactive Pupils are equal and reactive to accommodation. Extra-ocular movements, visual antonio to confrontation, facial sensorimotor, tongue, palate, sternocleidomastoid testing, hearing to finger rub testing, and bilateral shoulder shrug are all intact. Sensation is mildly diminished in both hands with complaint of paresthesias as well as mild to moderate decrease sensation light touch both feet. Strength is mildly diminished in major flexion-extension groups of the right versus left upper extremity. Positive hand deformity with finger contractures limit extension and hand intrinsic muscle testing. Mostly 3-/5 left hand intrinsics 4/5 proximal lower extremity motor testing with 4/5 bilateral tibialis anterior and 5/5 gastrocsoleus You's response marked positive bilateral Bilateral sustained ankle clonus Reflexes 3+ biceps, brachioradialis, patellar responses Mildly impaired fine motor responses upper extremities Laboratory Laboratory Tests Test 10/13/16 08:00 White Blood Count 12.0 Red Blood Count 3.52 Hemoglobin 10.5 Hematocrit 32.9 Mean Corpuscular Volume 93.4 Mean Corpuscular Hemoglobin 29.8 Mean Corpuscular Hemoglobin 31.9 Concent Red Cell Distribution Width 14.8 Platelet Count 396 Mean Platelet Volume 8.5 Neutrophils (%) (Auto) 66.8 Lymphocytes (%) (Auto) 23.1 Monocytes (%) (Auto) 8.2 Eosinophils (%) (Auto) 1.8 Basophils (%) (Auto) 0.1 Neutrophils # (Auto) 8.0 Lymphocytes # (Auto) 2.8 Monocytes # (Auto) 1.0 Eosinophils # (Auto) 0.2 Basophils # (Auto) 0.0 CBC Comment DIFF FINAL Differential Comment Activated Partial 26.7 Thromboplast Time Sodium Level 144 Potassium Level 3.9 Chloride Level 105 Carbon Dioxide Level 31.3 Anion Gap 8 Blood Urea Nitrogen 14 Creatinine 0.77 Estimat Glomerular Filtration 98 Rate Random Glucose 97 Calcium Level 9.2 Troponin I 0.04 Date/Time Procedure Status Source Growth 10/11/16 21:55 Urine Culture - Preliminary Resulted Urine Catheterized Urine Streptococcus Species Result Diagram: 10/13/16 0800 10/13/16 0800 Imaging 10/13/16 cervical and brain MRI images reviewed by the undersigned. There appears to be a abnormal signal intensity mass at the C3 4 level. Otherwise agree with findings as noted below: Chest CT 10/13/16 0000 Signed Impressions: Service Date/Time: Thursday, October 13, 2016 15:27 - CONCLUSION: I do not see evidence for a primary or metastatic disease to the chest. Subclavian vein stenosis on the right as described above. Chad Iqbal MD FACR Cervical Spine MRI 10/13/16 0000 Signed Impressions: Service Date/Time: Thursday, October 13, 2016 15:40 - CONCLUSION: 1. Exam degraded by motion artifact. Straightening of cervical lordosis with at least mild AP canal stenosis at every level between C2 and T1 and mild impressions on the anterior surface of the cord. Questionable small cord signal abnormality at C3-4, possibly edema or myelomalacia. Tom Bell MD Brain MRI 10/13/16 0000 Signed Impressions: Service Date/Time: Thursday, October 13, 2016 15:40 - CONCLUSION: 1. Enhancing 2.9 cm mass in right frontal lobe possibly associated with some hemorrhage with surrounding vasogenic edema and mild mass effect as above. 2. There are 2 small areas of signal abnormality in the left parietal lobe and left occipital lobe peripherally of uncertain etiology but possibly related to prior small infarcts. Tom Bell MD Abdomen/Pelvis CT 10/13/16 0000 Signed Impressions: Service Date/Time: Thursday, October 13, 2016 15:27 - CONCLUSION: I do not see evidence for primary neoplasm. Chad Iqbal MD FACR Head CT 10/11/162138 Signed Impressions: Service Date/Time: Tuesday, October 11, 2016 22:02 - CONCLUSION: Bifrontal vasogenic edema of concern for underlying mass(es), especially on the right. No hemorrhage or midline shift. Nonemergent MRI of the brain with and without contrast recommended. Russel Schofield MD Chest X-Ray 10/11/162138 Signed Impressions: Service Date/Time: Tuesday, October 11, 2016 22:12 - CONCLUSION: No evidence of acute cardiopulmonary disease. Russel Schofield MD Laboratory Tests Test 10/13/16 08:00 White Blood Count 12.0 TH/MM3 Red Blood Count 3.52 MIL/MM3 Hemoglobin 10.5 GM/DL Hematocrit 32.9 % Mean Corpuscular Volume 93.4 FL Mean Corpuscular Hemoglobin 29.8 PG Mean Corpuscular Hemoglobin 31.9 % Concent Red Cell Distribution Width 14.8 % Platelet Count 396 TH/MM3 Mean Platelet Volume 8.5 FL Neutrophils (%) (Auto) 66.8 % Lymphocytes (%) (Auto) 23.1 % Monocytes (%) (Auto) 8.2 % Eosinophils (%) (Auto) 1.8 % Basophils (%) (Auto) 0.1 % Neutrophils # (Auto) 8.0 TH/MM3 Lymphocytes # (Auto) 2.8 TH/MM3 Monocytes # (Auto) 1.0 TH/MM3 Eosinophils # (Auto) 0.2 TH/MM3 Basophils # (Auto) 0.0 TH/MM3 CBC Comment DIFF FINAL Differential Comment Activated Partial 26.7 SEC Thromboplast Time Sodium Level 144 MEQ/L Potassium Level 3.9 MEQ/L Chloride Level 105 MEQ/L Carbon Dioxide Level 31.3 MEQ/L Anion Gap 8 MEQ/L Blood Urea Nitrogen 14 MG/DL Creatinine 0.77 MG/DL Estimat Glomerular Filtration 98 ML/MIN Rate Random Glucose 97 MG/DL Calcium Level 9.2 MG/DL Troponin I 0.04 NG/ML Assessment and Plan Assessment and Plan Impression: 1. Approximately 3 cm right frontal mass with moderate surrounding edema and mild mass effect. There appears to be a small amount of associated hemorrhage. 2. History of CVA with persistent right upper extremity motor deficit and hand contractures. MRI findings suggestive of recent small infarcts. 3. Cervical spinal cord lesion with significant associated myelopathy on examination-suggestive of metastatic disease 4. Right forearm lesion consistent with melanoma. History of recent resection of scalp melanoma 5. Type 2 diabetes 6. Hypertension 7. COPD-on oxygen 8. Coronary artery disease with history of cardiac stent 2 9. Hypercholesterolemia 10. History of seizures-on Keppra 11. History of peripheral vascular disease-status post a lateral carotid endarterectomy 12. History of benign prostate hypertrophy 13. History left shoulder fracture-conservative treatment. Recently in nursing facility for recovery from fracture. Plan: 1. Medical and radiation oncology consults for probable metastatic neoplasm to the brain and possibly cervical spinal cord inpatient with recent history of melanoma. 2. Continue oral medications and sliding scale insulin for diabetes type 2 3. Continue antihypertensive medications 4. Hold Xarelto pending oncology recommendations regarding need for biopsy 5. PT/OT/ST evaluations 6. Non-chemical DVT prophylaxis. At risk for intracranial hemorrhage due to possibility of cerebral metastatic melanoma. 8. Continue oxygen for COPD. 9. Continue Keppra for seizure disorder 10. Medical consultation to assist with medical management. Santy Romo MD Oct 13, 2016 20:27
[2016-10-13] MEDS: DULoxetine HCl DR 60 MG CAP PO SCH (23:48)
[2016-10-14] VITALS (10 sets, daily range): BP systolic 108–182; BP diastolic 58–80; PULSE 58–79; RESP 18–22; TEMP 95.9–98.6; O2SAT 92–100
[2016-10-14] MEDS: D5-NS + KCL 20 MEQ INJ 1,000 ML IV SCH ×2 (00:20→22:58)
[2016-10-14] MEDS: RESP: ALBUTEROL 2.5 MG/IPRATROPIUM 0.5 MG NEB (SCH) INH ×4 (04:42→21:36)
[2016-10-14] MEDS: GABAPENTIN 300 MG CAP PO SCH ×3 (06:34→21:33)
[2016-10-14] MEDS: INSULIN NovoLIN REGULAR SUPPLEMENTAL SCALE SQ SCH ×4 (07:00→21:00)
[2016-10-14 08:06] LABS: AUTOMATED NEUTROPHIL # 4.9 TH/MM3 (1.8-7.7); BASOPHIL % 0.3 % (0.0-2.0); EOSINOPHIL # 0.2 TH/MM3 (0-0.4); EOSINOPHIL % 2.4 % (0.0-4.0); HEMATOCRIT 31.3 % (39.0-51.0); HEMO FLAGS DIFF FINAL; LYMPH % 32.6 % (9.0-44.0); LYMPHOCYTE # 2.9 TH/MM3 (1.0-4.8); MEAN CELL VOLUME 93.6 FL (80.0-100.0); MEAN CORPUSCULAR HEMOGLOBIN 30.1 PG (27.0-34.0); MEAN CORPUSCULAR HGB CONC 32.1 % (32.0-36.0); MONO % 9.5 % (0.0-8.0); NEUT % 55.2 % (16.0-70.0); PLATELET COUNT 336 TH/MM3 (150-450); RED BLOOD COUNT 3.35 MIL/MM3 (4.50-5.90); RED CELL DISTRIBUTION WIDTH 14.6 % (11.6-17.2); WHITE BLOOD COUNT 8.8 TH/MM3 (4.0-11.0)
[2016-10-14] MEDS: TIOTROPIUM BROMIDE 18 MCG INH INH SCH (09:00)
[2016-10-14] MEDS: CARVEDILOL 3.125 MG TAB PO SCH ×2 (09:06→21:33)
[2016-10-14] MEDS: DOCUSATE SODIUM 100 MG CAP PO SCH ×2 (09:06→21:33)
[2016-10-14] MEDS: amLODIPine BESYLATE 5 MG TAB PO SCH (09:07)
[2016-10-14] MEDS: PANTOPRAZOLE SOD 40 MG DELAYED RELEASE TAB PO SCH (09:07)
[2016-10-14] MEDS: FINASTERIDE 5 MG TAB PO SCH (09:07)
[2016-10-14] MEDS: FERROUS SULFATE 325 MG (65 MG ELEMENTAL IRON) TAB PO SCH ×3 (09:07→15:55)
[2016-10-14] MEDS: MONTELUKAST SODIUM 10 MG TAB PO SCH (09:07)
[2016-10-14] MEDS: levETIRAcetam 500 MG TAB PO SCH ×2 (09:07→21:33)
[2016-10-14] MEDS: LISINOPRIL 5 MG TAB PO SCH (09:07)
[2016-10-14] MEDS: SODIUM CHLORIDE 0.9% FLUSH 5 ML FLUSH IVF SCH ×2 (09:10→21:00)
--- NOTE | 2016-10-14 09:28 | HHI.NSPN ---
History Chief Complaint: no complaint Interval History 76-year-old male [facility] facility following upper extremity fracture. Admitted 10/12/16 due to acute onset altered mental status and confusion. Initial CT scan and MRI brain revealed right frontal lesion with moderate surrounding edema most consistent with metastatic neoplasm. MRI cervical spine reveals abnormal signal intensity lesion upper cervical cord also suspicious for metastatic lesion. Patient's physical examination consistent with significant cervical myelopathy. CT scan chest abdomen and pelvis negative for primary disease. Patient with history of melanoma with recent resection of scalp lesion and planned resection of upper extremity lesion. Exam Results Vital Signs Date Time Temp Pulse Resp B/P Pulse Ox O2 Delivery O2 Flow Rate FiO2 10/14/16 04:45 92 BiPAP 10/14/16 04:00 96.5 60 20 145/67 10/13/16 12:04 2.00 Intake and Output 10/13/16 10/13/16 10/13/16 07:59 15:59 23:59 Intake Total 330 ml 480 ml Balance 330 ml 480 ml Physical Examination Patient resting quietly with oxygen in place. Respirations clear to auscultation Cardiac regular without murmur Abdomen soft and nontender No significant lower extremity edema Appears somewhat more lethargic versus 10/13/16. Initially somewhat difficult to arouse. Once stimulated, he wakes up and will say a few words and converse a little with at least mild dysarthria. He knows that he is in the hospital. He will follow simple commands He is able to sit on the side of the bed only with significant assistance. Moderate conjugate extraocular movements Moves all extremities to command with persistent weakness proximal left upper extremity and distal right greater than left upper extremity with contractures right hand due to previous CVA. Lower extremity motor function mostly 3/5 proximal, 4-5/5 distal Significant bilateral You's response and bilateral sustained ankle clonus. Lab, Micro, Other Results Chest CT 10/13/16 0000 Signed Impressions: Service Date/Time: Thursday, October 13, 2016 15:27 - CONCLUSION: I do not see evidence for a primary or metastatic disease to the chest. Subclavian vein stenosis on the right as described above. Chad Iqbal MD FACR Cervical Spine MRI 10/13/16 0000 Signed Impressions: Service Date/Time: Thursday, October 13, 2016 15:40 - CONCLUSION: 1. Exam degraded by motion artifact. Straightening of cervical lordosis with at least mild AP canal stenosis at every level between C2 and T1 and mild impressions on the anterior surface of the cord. Questionable small cord signal abnormality at C3-4, possibly edema or myelomalacia. Tom Bell MD Brain MRI 10/13/16 0000 Signed Impressions: Service Date/Time: Thursday, October 13, 2016 15:40 - CONCLUSION: 1. Enhancing 2.9 cm mass in right frontal lobe possibly associated with some hemorrhage with surrounding vasogenic edema and mild mass effect as above. 2. There are 2 small areas of signal abnormality in the left parietal lobe and left occipital lobe peripherally of uncertain etiology but possibly related to prior small infarcts. Tom Bell MD Abdomen/Pelvis CT 10/13/16 0000 Signed Impressions: Service Date/Time: Thursday, October 13, 2016 15:27 - CONCLUSION: I do not see evidence for primary neoplasm. Chad Iqbal MD FACR Head CT 10/11/162138 Signed Impressions: Service Date/Time: Tuesday, October 11, 2016 22:02 - CONCLUSION: Bifrontal vasogenic edema of concern for underlying mass(es), especially on the right. No hemorrhage or midline shift. Nonemergent MRI of the brain with and without contrast recommended. Russel Schofield MD Chest X-Ray 10/11/162138 Signed Impressions: Service Date/Time: Tuesday, October 11, 2016 22:12 - CONCLUSION: No evidence of acute cardiopulmonary disease. Russel Schofield MD Laboratory Tests Test 10/14/16 07:17 White Blood Count 8.8 TH/MM3 Red Blood Count 3.35 MIL/MM3 Hemoglobin 10.1 GM/DL Hematocrit 31.3 % Mean Corpuscular Volume 93.6 FL Mean Corpuscular Hemoglobin 30.1 PG Mean Corpuscular Hemoglobin 32.1 % Concent Red Cell Distribution Width 14.6 % Platelet Count 336 TH/MM3 Mean Platelet Volume 8.5 FL Neutrophils (%) (Auto) 55.2 % Lymphocytes (%) (Auto) 32.6 % Monocytes (%) (Auto) 9.5 % Eosinophils (%) (Auto) 2.4 % Basophils (%) (Auto) 0.3 % Neutrophils # (Auto) 4.9 TH/MM3 Lymphocytes # (Auto) 2.9 TH/MM3 Monocytes # (Auto) 0.8 TH/MM3 Eosinophils # (Auto) 0.2 TH/MM3 Basophils # (Auto) 0.0 TH/MM3 CBC Comment DIFF FINAL Differential Comment Medical Decision Making Impression and Plan Impression: 1. Right frontal lesion-most consistent with metastatic neoplasm 2. 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 History of melanoma 4. COPD 5. Hypertension 6. Coronary artery disease 7. Peripheral neuropathy 8. History of BPH 9. Dyslipidemia 10. Type 2 diabetes 11. Previous CVA with residual right upper extremity paresis Plan: Imaging findings were discussed with the patient Await medical oncology evaluation regarding further treatment. Patient with relatively poor functional status. He may not be a reasonable candidate for aggressive intervention, consider palliative care consult depending on oncology recommendations. Diabetes: Continuing sliding scale insulin Hypertension: Continuing home medications Previous CVA: Xarelto held due to probable small amount of hemorrhage at the right frontal brain lesion as well as possible need for biopsy or other invasive measures. Medicine service following. Santy Romo MD Oct 14, 2016 09:28
[2016-10-14] MEDS: cefTRIAXone INJ 1,000 MG in SODIUM CHLORIDE 0.9% INJ 100 ML IV SCH (11:04)
--- NOTE | 2016-10-14 12:07 | HHI.PR ---
Subjective Remarks The patient was resting in bed comfortably. He wanted to know what the treatment plan was. He was unsure of why he was in the hospital. He had no acute complaints at this time. Objective Vitals Vital Signs Date Time Temp Pulse Resp B/P Pulse Ox O2 Delivery O2 Flow Rate FiO2 10/14/16 09:35 92 Nasal Cannula 2.00 10/14/16 08:00 96.7 63 18 135/68 97 10/14/16 04:45 92 BiPAP 10/14/16 04:00 96.5 60 20 145/67 96 10/14/16 00:37 96.4 60 20 121/58 95 10/13/16 22:30 96.9 60 20 123/60 91 10/13/16 21:07 92 10/13/16 16:00 96.8 68 18 154/76 98 10/13/16 12:04 98 Nasal Cannula 2.00 10/13/16 12:00 97.9 65 18 180/72 99 I/O 10/13/16 10/13/16 10/13/16 10/14/16 10/14/16 10/14/16 07:00 15:00 23:00 07:00 15:00 23:00 Intake Total 330 ml 480 ml 215 ml Balance 330 ml 480 ml 215 ml Intake Oral 480 ml IV Total 330 ml 215 ml # Voids 1 3 1 1 # Bowel Movements 3 1 0 Result Diagram: 10/14/16 0717 10/13/16 0800 Imaging Last Impressions Chest CT 10/13/16 0000 Signed Impressions: Service Date/Time: Thursday, October 13, 2016 15:27 - CONCLUSION: I do not see evidence for a primary or metastatic disease to the chest. Subclavian vein stenosis on the right as described above. Chad Iqbal MD FACR Cervical Spine MRI 10/13/16 0000 Signed Impressions: Service Date/Time: Thursday, October 13, 2016 15:40 - CONCLUSION: 1. Exam degraded by motion artifact. Straightening of cervical lordosis with at least mild AP canal stenosis at every level between C2 and T1 and mild impressions on the anterior surface of the cord. Questionable small cord signal abnormality at C3-4, possibly edema or myelomalacia. Tom Bell MD Brain MRI 10/13/16 0000 Signed Impressions: Service Date/Time: Thursday, October 13, 2016 15:40 - CONCLUSION: 1. Enhancing 2.9 cm mass in right frontal lobe possibly associated with some hemorrhage with surrounding vasogenic edema and mild mass effect as above. 2. There are 2 small areas of signal abnormality in the left parietal lobe and left occipital lobe peripherally of uncertain etiology but possibly related to prior small infarcts. Tom Bell MD Abdomen/Pelvis CT 10/13/16 0000 Signed Impressions: Service Date/Time: Thursday, October 13, 2016 15:27 - CONCLUSION: I do not see evidence for primary neoplasm. Chad Iqbal MD FACR Head CT 10/11/162138 Signed Impressions: Service Date/Time: Tuesday, October 11, 2016 22:02 - CONCLUSION: Bifrontal vasogenic edema of concern for underlying mass(es), especially on the right. No hemorrhage or midline shift. Nonemergent MRI of the brain with and without contrast recommended. Russel Schofield MD Chest X-Ray 10/11/162138 Signed Impressions: Service Date/Time: Tuesday, October 11, 2016 22:12 - CONCLUSION: No evidence of acute cardiopulmonary disease. Russel Schofield MD Objective Remarks GENERAL: Well-nourished, well-developed elderly male in no acute distress. SKIN: Warm and dry. He has a large raised area of dark purple discoloration on his anterior right forearm. HEAD: Normocephalic. EYES: No scleral icterus. No injection or drainage. NECK: Supple, trachea midline. No JVD or lymphadenopathy. CARDIOVASCULAR: Regular rate and rhythm without murmurs, gallops, or rubs. RESPIRATORY: Breath sounds equal bilaterally. No accessory muscle use. GASTROINTESTINAL: Abdomen soft, non-tender, nondistended. EXTREMITIES: No cyanosis, or edema. NEUROLOGICAL: Awake, alert, and oriented to self but not month. Upper extremities with 3 out of 5 strength and lower extremities with 4 out of 5 strength. Medications and IVs Current Medications Medications (Trade) Dose Ordered Sig/Mickey Route Start Time Stop Time Status Last Admin (Narcan Inj) 0.4 mg UNSCH PRN IV 10/12/16 00:30 (Trandate Inj) 10 mg Q1H PRN IV 10/12/16 00:30 (Catapres) 0.1 mg Q6H PRN PO 10/12/16 00:30 10/12/16 06:40 (Norvasc) 2.5 mg DAILY PO 10/12/16 09:00 10/14/16 09:07 (NS Flush) 2 ml UNSCH PRN IVF 10/12/16 00:30 IV Flush 2 ml 2 ml BID IVF 10/12/16 09:00 10/14/16 09:10 (D5-NS + KCl 20 Meq Inj) 1,000 ml @ 30 mls/hr Q24H IV 10/12/16 00:20 10/14/16 00:20 (Colace) 100 mg BID PO 10/12/16 09:00 10/14/16 09:06 (Protonix) 40 mg DAILY PO 10/12/16 09:00 10/14/16 09:07 (Zofran Inj) 4 mg Q6H PRN IV 10/12/16 00:30 (Phenergan Inj) 25 mg Q4H PRN IM 10/12/16 00:30 (Coreg) 3.125 mg Q12HR PO 10/12/16 09:00 10/14/16 09:06 (Cymbalta Dr) 60 mg HS PO 10/12/16 21:00 10/13/16 23:48 (Ferrous Sulfate) 325 mg TID PO 10/12/16 09:00 10/14/16 11:04 (Proscar) 5 mg DAILY PO 10/12/16 09:00 10/14/16 09:07 (Neurontin) 300 mg Q8HR PO 10/12/16 06:00 10/14/16 11:04 (Keppra) 500 mg Q12HR PO 10/12/16 09:00 10/14/16 09:07 (Prinivil) 5 mg DAILY PO 10/12/16 09:00 10/14/16 09:07 (Singulair) 10 mg DAILY PO 10/12/16 09:00 10/14/16 09:07 (Tears Naturale Opth Soln) 1 drop Q8HR PRN EACH EYE 10/12/16 00:30 (Ultram) 50 mg Q6H PRN PO 10/12/16 00:30 (Pill Splitter) 1 ea UNSCH PRN OTHER 10/12/16 00:45 (D50w (Vial) Inj) 25 ml UNSCH PRN IV PUSH 10/12/16 00:45 10/12/16 17:04 (Glucagon Inj) 1 mg UNSCH PRN OTHER 10/12/16 00:45 Lorazepam 0.5 mg 0.5 mg Q15M PRN IV PUSH 10/12/16 15:00 10/13/16 18:10 (Rocephin Inj/NS Inj) 100 ml @ 200 mls/hr Q24H IV 10/13/16 12:00 10/14/16 11:04 A/P Assessment and Plan Cranial mass Head CT showing bifrontal vasogenic edema with possible mass in the left frontal lobe. He was admitted to neurosurgery. Further imaging showed: Straightening of cervical lordosis with at least mild AP canal stenosis at every level between C2 and T1 and mild impressions on the anterior surface of the cord; Questionable small cord signal abnormality at C3-4, possibly edema or myelomalacia. Brain MRI showed: Enhancing 2.9 cm mass in right frontal lobe possibly associated with some hemorrhage with surrounding vasogenic edema and mild mass effect as above; There are 2 small areas of signal abnormality in the left parietal lobe and left occipital lobe peripherally of uncertain etiology but possibly related to prior small infarcts. - Keppra for seizure prophylaxis. - management per NS. - oncology consult pending. - PT/OT/ST. History of stroke With residual right upper extremity weakness. - hold Xarelto at this time per neurosurgery. COPD With chronic respiratory failure on 2 L oxygen continuously. CXR unremarkable. - continue duo nebs as needed and oxygen. Type 2 diabetes On glipizide as an outpt. - hold his glipizide while he is inpatient and start an insulin sliding scale. - continue Neurontin. Hypertension Well controlled at this time. - Continue lisinopril, Norvasc and Coreg. Recent left shoulder fracture The pt was at rehab prior to admission. - being treated nonoperatively. - outpt follow-up with ortho. Coronary artery disease With history of 2 stents and cardiac arrest. Currently he is not on aspirin as reported at [facility] and rehabilitation. He is on Xarelto for the history of stroke. - Xarelto is being held by neurosurgery. - Hold Lipitor as well due to association with intracerebral hemorrhage. Chronic anemia Stable. - continue ferrous sulfate. UTI Urine culture growing strep. - continue ceftriaxone. DVT prophylaxis with SCDs. Discharge Planning Per primary. Francis Lombardo DO Oct 14, 2016 12:07
[2016-10-14] MEDS: DULoxetine HCl DR 60 MG CAP PO SCH (21:33)
[2016-10-14] MEDS: LORazepam 2 MG/ML VIAL IV PUSH PRN ×2 (21:37→22:55)
--- NOTE | 2016-10-14 22:02 | MB ---
cc: MATIAS RAMOS DATE OF CONSULTATION 10/14/16 CHIEF COMPLAINT I am asked to see the patient because of a brain tumor. PATIENT PROFILE The patient was able to provide only a limited history when I went to see him. He was unaware that he was in the hospital. He thought he was in a different state. He thought his dog was outside the room. He was able to provide me with some information. Further information was obtained by reviewing the records in the chart, speaking to the patients neurosurgeon, Dr. Kevin Romo and calling the patient's at home this evening. The patient is a 76-year-old male. He is and lives with his in [place]. He was born in [place]. He states that he has a son and daughter. He is retired. He had been in the [employer] in the past and worked for the [employer]. He states that he does not drink or smoke. HISTORY OF PRESENT ILLNESS The patient is a frail 76-year-old male. He has a history of diabetes, coronary artery disease, cardiac stents, COPD, sleep apnea and other problems. There has been a significant deterioration in health during the past several months and multiple medical problems have emerged during the past year. He has had increasing confusion. He was recently at [facility] following an extremity fracture. He was undergoing rehabilitation. Due to increasing confusion on 10/13 he had a MRI of the brain. I reviewed the images and he has an enhancing 2.9 cm mass in the right frontal lobe associated with some hemorrhage with surrounding vasogenic edema and mild mass effect. There are two small areas of signal abnormality in the left parietal lobe and left occipital lobe peripherally of uncertain etiology, most likely related to prior strokes. On 10/13/[address] scan of the abdomen and pelvis with IV contrast. There was no evidence of a primary tumor or metastatic disease. A CT scan of the thorax dated 10/13/2016 reads no evidence for primary or metastatic disease in the chest, subclavian stenosis on the right. PAST SURGICAL HISTORY 1. Cholecystectomy. 2. Coronary stent. 3. Right cataract. 4. Hiatal hernia repair. PAST MEDICAL HISTORY 1. Increasing confusion and problems with memory ? Alzheimer's. 2. Arthritis. 3. Depression. 4. Coronary artery disease. 5. Elevated cholesterol. 6. Previous cerebrovascular accidents. 7. Diabetes. 8. A history of multiple skin cancers including basal, squamous cell and according to the melanoma. 9. Sleep apnea. MEDICATIONS PRIOR TO ADMISSION 1. Tylenol. 2. Lipitor. 3. Coreg. 4. Cymbalta. 5. Famotidine. 6. Finasteride. 7. Iron. 8. Gabapentin. 9. Glipizide. 10. DuoNebs. 11. Keppra. 12. Lisinopril. 13. Singulair 14. Xarelto. 15. Spiriva. 16. Tramadol. ALLERGIES No known allergies. FAMILY HISTORY Not obtainable. REVIEW OF SYSTEMS The patient does not voice any complaints. He has no insight. He thinks he is in another state. He does not know he is at [facility] and he believes that his dog is outside of his room. PHYSICAL EXAMINATION VITAL SIGNS: Blood pressure is 180/80, respiratory rate 22, pulse 80, afebrile, O2 sat 94%. HEENT: Head is normocephalic. Sclera and conjunctiva are normal. Oropharynx no lesions. There is no adenopathy. HEART: Regular rhythm. LUNGS: Clear. ABDOMEN: Soft. No hepatosplenomegaly. EXTREMITIES: Trace edema. MUSCULOSKELETAL: He is very stiff. There is specific bone tenderness. NEUROLOGIC: Left-sided weakness. SKIN: significant damage from the sun with keratosis. no melanoma identified. DATA Additional information, MRI of the cervical spine at C3 and C4 showed possible edema or myelomalacia. In talking with Dr. Romo malignancy would also be a possibility. ASSESSMENT The patient is a profoundly debilitated 76-year-old male. He is confused. He has no insight into what is taking place. He has what appears to be a malignant tumor measuring 2.9 cm in the right frontal lobe with a mild amount of edema. He has no other evidence of metastatic disease. There is a possibility of involvement of the cervical cord as well. There is no evidence of a primary malignancy or evidence of metastatic disease elsewhere. The immediate possibilities that come to mind would be metastatic melanoma or a primary glioblastoma of the brain. If this man were healthy I would recommend neurosurgical resection of the mass in the right frontal lobe. This would not only provide a diagnosis but the tumor could be removed which would be therapeutic. Given this gentleman's poor health and his significant cognitive problems I do not feel that he is a good candidate for surgical resection. I doubt that it would provide any meaningful benefit by doing palliative radiation and at this point we do not even have a tissue diagnosis. PLAN 1. I called Kevin Romo- neurosurgeon and discussed the case with him. His feelings are similar. He does not think that the patient is going to benefit either from excision of the mass, biopsy of the mass or any attempted therapy. I then called the patient's at approximately 9:15 p.m. and discussed the findings and our thoughts. She likewise feels that her is not going to benefit from the treatments which were discussed above. Under these circumstances Hospice is most appropriate. I asked her if she would be willing to speak with the hospice staff and she is agreeable. I have placed a consult with Hospice. MD CIARRA Olguin/EDUIN /9:24 PM /9:44 PM [email or web address]
[2016-10-15] VITALS (10 sets, daily range): BP systolic 127–182; BP diastolic 60–81; PULSE 54–87; RESP 17–24; TEMP 95.5–98; O2SAT 95–100
[2016-10-15] MEDS: RESP: ALBUTEROL 2.5 MG/IPRATROPIUM 0.5 MG NEB (SCH) INH ×4 (04:09→21:13)
[2016-10-15] MEDS: cloNIDine HCL 0.1 MG TAB PO PRN (06:03)
[2016-10-15] MEDS: GABAPENTIN 300 MG CAP PO SCH ×3 (06:03→21:55)
[2016-10-15] MEDS: INSULIN NovoLIN REGULAR SUPPLEMENTAL SCALE SQ SCH ×4 (06:33→21:56)
[2016-10-15] MEDS: DOCUSATE SODIUM 100 MG CAP PO SCH ×2 (09:53→21:53)
[2016-10-15] MEDS: amLODIPine BESYLATE 5 MG TAB PO SCH (09:53)
[2016-10-15] MEDS: SODIUM CHLORIDE 0.9% FLUSH 5 ML FLUSH IVF SCH ×2 (09:53→21:00)
[2016-10-15] MEDS: LISINOPRIL 5 MG TAB PO SCH (09:54)
[2016-10-15] MEDS: CARVEDILOL 3.125 MG TAB PO SCH ×2 (09:54→21:55)
[2016-10-15] MEDS: FERROUS SULFATE 325 MG (65 MG ELEMENTAL IRON) TAB PO SCH ×3 (09:54→18:03)
[2016-10-15] MEDS: levETIRAcetam 500 MG TAB PO SCH ×2 (09:54→21:55)
[2016-10-15] MEDS: MONTELUKAST SODIUM 10 MG TAB PO SCH (09:54)
[2016-10-15] MEDS: PANTOPRAZOLE SOD 40 MG DELAYED RELEASE TAB PO SCH (09:54)
[2016-10-15] MEDS: FINASTERIDE 5 MG TAB PO SCH (09:54)
[2016-10-15] MEDS: cefTRIAXone INJ 1,000 MG in SODIUM CHLORIDE 0.9% INJ 100 ML IV SCH (15:17)
[2016-10-15] MEDS: traMADol HCL 50 MG TAB PO PRN (21:54)
[2016-10-15] MEDS: DULoxetine HCl DR 60 MG CAP PO SCH (21:55)
--- NOTE | 2016-10-15 23:55 | HHI.NSPN ---
History Chief Complaint: no complaint Interval History 76-year-old male [facility]. Admitted 10/12/16 due to acute onset altered mental status and confusion. Initial CT scan and MRI brain revealed right frontal lesion with moderate surrounding edema most consistent with metastatic neoplasm. MRI cervical spine reveals abnormal signal intensity lesion upper cervical cord also suspicious for metastatic lesion. Patient's physical examination consistent with significant cervical myelopathy. CT scan chest abdomen and pelvis negative for primary disease. Patient with history of melanoma with recent resection of scalp lesion and planned resection of upper extremity lesion. Exam Results Vital Signs Date Time Temp Pulse Resp B/P Pulse Ox O2 Delivery O2 Flow Rate FiO2 10/15/16 20:00 97.9 66 17 152/70 99 10/15/16 15:41 Nasal Cannula 2.00 Intake and Output 10/14/16 10/14/16 10/15/16 08:00 16:00 00:00 Intake Total 455 ml Balance 455 ml Physical Examination Patient resting quietly with oxygen in place. Respirations clear to auscultation Cardiac regular without murmur Abdomen soft and nontender No significant lower extremity edema Appears somewhat more lethargic versus 10/13/16. Initially somewhat difficult to arouse. Once stimulated, he wakes up and will say a few words and converse a little with at least mild dysarthria. He knows that he is in the hospital. He will follow simple commands He is able to sit on the side of the bed only with significant assistance. Moderate conjugate extraocular movements Moves all extremities to command with persistent weakness proximal left upper extremity and distal right greater than left upper extremity with contractures right hand due to previous CVA. Lower extremity motor function mostly 3/5 proximal, 4-5/5 distal Significant bilateral You's response and bilateral sustained ankle clonus. Medical Decision Making Impression and Plan Impression: 1. Right frontal lesion-most consistent with metastatic neoplasm 2. 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 History of squamous cell carcinoma of the skin with multiple lesions removed 4. COPD 5. Hypertension 6. Coronary artery disease 7. Peripheral neuropathy 8. History of BPH 9. Dyslipidemia 10. Type 2 diabetes 11. Previous CVA with residual right upper extremity paresis Plan: Discussed 10/14/[address] Vides, oncology, and 10/15/[address] Chloe Katz, primary care physician. Patient with relatively poor functional status. He may not be a reasonable candidate for aggressive intervention, consider palliative care consult Diabetes: Continuing sliding scale insulin Hypertension: Continuing home medications Previous CVA: Xarelto held due to probable small amount of hemorrhage at the right frontal brain lesion as well as possible need for biopsy or other invasive measures. Medicine service following. Santy Romo MD Oct 15, 2016 23:55
[2016-10-16] VITALS (9 sets, daily range): BP systolic 120–183; BP diastolic 56–80; PULSE 56–80; RESP 18–22; TEMP 97–98; O2SAT 95–100
[2016-10-16] MEDS: D5-NS + KCL 20 MEQ INJ 1,000 ML IV SCH (00:20)
[2016-10-16] MEDS: INSULIN NovoLIN REGULAR SUPPLEMENTAL SCALE SQ SCH ×4 (05:11→20:52)
[2016-10-16] MEDS: GABAPENTIN 300 MG CAP PO SCH ×3 (05:12→20:52)
[2016-10-16] MEDS: cloNIDine HCL 0.1 MG TAB PO PRN (05:15)
[2016-10-16] MEDS: LISINOPRIL 5 MG TAB PO SCH (09:00)
[2016-10-16] MEDS: CARVEDILOL 3.125 MG TAB PO SCH ×2 (09:00→20:52)
[2016-10-16] MEDS: PANTOPRAZOLE SOD 40 MG DELAYED RELEASE TAB PO SCH (09:25)
[2016-10-16] MEDS: FINASTERIDE 5 MG TAB PO SCH (09:25)
[2016-10-16] MEDS: amLODIPine BESYLATE 5 MG TAB PO SCH (09:25)
[2016-10-16] MEDS: DOCUSATE SODIUM 100 MG CAP PO SCH ×2 (09:26→20:52)
[2016-10-16] MEDS: levETIRAcetam 500 MG TAB PO SCH ×2 (09:26→20:52)
[2016-10-16] MEDS: FERROUS SULFATE 325 MG (65 MG ELEMENTAL IRON) TAB PO SCH ×3 (09:26→18:00)
[2016-10-16] MEDS: MONTELUKAST SODIUM 10 MG TAB PO SCH (09:26)
[2016-10-16] MEDS: SODIUM CHLORIDE 0.9% FLUSH 5 ML FLUSH IVF SCH ×2 (09:27→20:53)
[2016-10-16] MEDS: cefTRIAXone INJ 1,000 MG in SODIUM CHLORIDE 0.9% INJ 100 ML IV SCH (12:15)
[2016-10-16] MEDS: DULoxetine HCl DR 60 MG CAP PO SCH (20:52)
--- NOTE | 2016-10-16 23:15 | HHI.NSPN ---
History Chief Complaint: no complaint Interval History 76-year-old male recently placed in shelter facility following upper extremity fracture. Admitted 10/12/16 due to acute onset altered mental status and confusion. Initial CT scan and MRI brain revealed right frontal lesion with moderate surrounding edema most consistent with metastatic neoplasm. MRI cervical spine reveals abnormal signal intensity lesion upper cervical cord also suspicious for metastatic lesion. Patient's physical examination consistent with significant cervical myelopathy. CT scan chest abdomen and pelvis negative for primary disease. Patient with history of multiple skin squamous cell carcinomas with recent resection of scalp lesion . Exam Results Vital Signs Date Time Temp Pulse Resp B/P Pulse Ox O2 Delivery O2 Flow Rate FiO2 10/16/16 20:00 97.2 78 18 181/80 98 10/16/16 12:00 Nasal Cannula 2.00 Intake and Output 10/15/16 10/15/16 10/16/16 08:00 16:00 00:00 Intake Total 60 ml 120 ml Output Total 300 ml 800 ml Balance -300 ml 60 ml -680 ml Physical Examination Patient resting quietly in bed Respirations clear to auscultation Cardiac regular without murmur Abdomen soft and nontender No significant lower extremity edema Appears somewhat more lethargic versus 10/13/16. Awake and relatively alert Speech clear, relatively fluent He knows that he is in the hospital. States that he is in [place]. He states that he was watching a basketball game earlier today when the nurses came and "tied me up". He presently is not in restraints and according to nursing staff has not been in any restraints today. The patient states that he went with his to another hospital today to do some paperwork. He asked that we call his to let her know where he is so she is not worried. He will follow simple commands He is able to sit on the side of the bed with mild assist. Moderate conjugate extraocular movements Moves all extremities to command with persistent weakness proximal left upper extremity and distal right greater than left upper extremity with contractures right hand due to previous CVA. Lower extremity motor function mostly 3/5 proximal, 4-5/5 distal Significant bilateral You's response and bilateral sustained ankle clonus. Medical Decision Making Impression and Plan Impression: 1. Right frontal lesion-most consistent with metastatic neoplasm 2. 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 History of squamous cell carcinoma of the skin with multiple lesions removed 4. COPD 5. Hypertension 6. Coronary artery disease 7. Peripheral neuropathy 8. History of BPH 9. Dyslipidemia 10. Type 2 diabetes 11. Previous CVA with residual right upper extremity paresis Plan: Discussed 10/14/[address] Vides, oncology, and 10/15/[address] Chloe Katz, primary care physician. Mental status is somewhat improved today. Patient with relatively poor functional status. Patient's is agreeable with hospice consult-request submitted. Diabetes: Continuing sliding scale insulin Hypertension: Continuing home medications Previous CVA: Xarelto held due to probable small amount of hemorrhage at the right frontal brain lesion as well as possible need for biopsy or other invasive measures. Medicine service following. Santy Romo MD Oct 16, 2016 23:15
[2016-10-17] VITALS (8 sets, daily range): BP systolic 107–175; BP diastolic 55–80; PULSE 62–89; RESP 20–21; TEMP 96.5–99.8; O2SAT 93–100
[2016-10-17] MEDS: D5-NS + KCL 20 MEQ INJ 1,000 ML IV SCH (00:20)
[2016-10-17] MEDS: GABAPENTIN 300 MG CAP PO SCH ×3 (06:14→21:59)
[2016-10-17] MEDS: INSULIN NovoLIN REGULAR SUPPLEMENTAL SCALE SQ SCH ×4 (06:16→21:00)
[2016-10-17] MEDS: SODIUM CHLORIDE 0.9% FLUSH 5 ML FLUSH IVF SCH ×2 (09:00→21:59)
[2016-10-17] MEDS: PANTOPRAZOLE SOD 40 MG DELAYED RELEASE TAB PO SCH (09:02)
[2016-10-17] MEDS: CARVEDILOL 3.125 MG TAB PO SCH ×2 (09:02→21:59)
[2016-10-17] MEDS: amLODIPine BESYLATE 5 MG TAB PO SCH (09:02)
[2016-10-17] MEDS: levETIRAcetam 500 MG TAB PO SCH ×2 (09:02→21:59)
[2016-10-17] MEDS: FINASTERIDE 5 MG TAB PO SCH (09:02)
[2016-10-17] MEDS: FERROUS SULFATE 325 MG (65 MG ELEMENTAL IRON) TAB PO SCH ×3 (09:02→16:35)
[2016-10-17] MEDS: DOCUSATE SODIUM 100 MG CAP PO SCH ×2 (09:02→21:59)
[2016-10-17] MEDS: LISINOPRIL 5 MG TAB PO SCH (09:02)
[2016-10-17] MEDS: MONTELUKAST SODIUM 10 MG TAB PO SCH (09:02)
[2016-10-17] MEDS ORDERED: LISINOPRIL 10 MG TAB PO ONE (10:15)
--- NOTE | 2016-10-17 10:19 | HHI.PR ---
Subjective Remarks The patient was resting comfortably. He knew he was in the hospital but otherwise was confused on why he was here. Staff reports that there were concerns of . Objective Vitals Vital Signs Date Time Temp Pulse Resp B/P Pulse Ox O2 Delivery O2 Flow Rate FiO2 10/17/16 07:42 96.8 76 20 175/80 100 10/17/16 04:00 97.0 71 20 163/77 93 10/17/16 00:00 97.1 89 21 169/80 94 10/16/16 23:00 80 10/16/16 20:00 97.2 78 18 181/80 98 10/16/16 16:36 97.0 60 20 146/65 100 10/16/16 12:08 97.1 56 20 122/59 100 10/16/16 12:00 99 Nasal Cannula 2.00 I/O 10/16/16 10/16/16 10/16/16 10/17/16 10/17/16 10/17/16 07:00 15:00 23:00 07:00 15:00 23:00 Intake Total 120 ml 240 ml 526 ml 60 ml Output Total 450 ml 200 ml Balance -330 ml 240 ml 326 ml 60 ml Intake Oral 120 ml 240 ml 240 ml 60 ml IV Total 286 ml Output Urine Total 450 ml 200 ml # Voids 1 2 # Bowel Movements 0 0 0 Result Diagram: 10/14/16 0717 10/13/16 0800 Imaging Last Impressions Chest CT 10/13/16 0000 Signed Impressions: Service Date/Time: Thursday, October 13, 2016 15:27 - CONCLUSION: I do not see evidence for a primary or metastatic disease to the chest. Subclavian vein stenosis on the right as described above. Chad Iqbal MD FACR Cervical Spine MRI 10/13/16 0000 Signed Impressions: Service Date/Time: Thursday, October 13, 2016 15:40 - CONCLUSION: 1. Exam degraded by motion artifact. Straightening of cervical lordosis with at least mild AP canal stenosis at every level between C2 and T1 and mild impressions on the anterior surface of the cord. Questionable small cord signal abnormality at C3-4, possibly edema or myelomalacia. Tom Bell MD Brain MRI 10/13/16 0000 Signed Impressions: Service Date/Time: Thursday, October 13, 2016 15:40 - CONCLUSION: 1. Enhancing 2.9 cm mass in right frontal lobe possibly associated with some hemorrhage with surrounding vasogenic edema and mild mass effect as above. 2. There are 2 small areas of signal abnormality in the left parietal lobe and left occipital lobe peripherally of uncertain etiology but possibly related to prior small infarcts. Tom Bell MD Abdomen/Pelvis CT 10/13/16 0000 Signed Impressions: Service Date/Time: Thursday, October 13, 2016 15:27 - CONCLUSION: I do not see evidence for primary neoplasm. Chad Iqbal MD FACR Head CT 10/11/162138 Signed Impressions: Service Date/Time: Tuesday, October 11, 2016 22:02 - CONCLUSION: Bifrontal vasogenic edema of concern for underlying mass(es), especially on the right. No hemorrhage or midline shift. Nonemergent MRI of the brain with and without contrast recommended. Russel Schofield MD Chest X-Ray 10/11/162138 Signed Impressions: Service Date/Time: Tuesday, October 11, 2016 22:12 - CONCLUSION: No evidence of acute cardiopulmonary disease. Russel Schofield MD Objective Remarks GENERAL: Well-nourished, well-developed elderly male in no acute distress. SKIN: Warm and dry. He has a large raised area of dark purple discoloration on his anterior right forearm. HEAD: Normocephalic. EYES: No scleral icterus. No injection or drainage. NECK: Supple, trachea midline. No JVD or lymphadenopathy. CARDIOVASCULAR: Regular rate and rhythm without murmurs, gallops, or rubs. RESPIRATORY: Breath sounds equal bilaterally. No accessory muscle use. GASTROINTESTINAL: Abdomen soft, non-tender, nondistended. EXTREMITIES: No cyanosis, or edema. NEUROLOGICAL: Awake, alert, and oriented to self but not month. Upper extremities with 3 out of 5 strength and lower extremities with 4 out of 5 strength. Medications and IVs Current Medications Medications (Trade) Dose Ordered Sig/Mickey Route Start Time Stop Time Status Last Admin (Narcan Inj) 0.4 mg UNSCH PRN IV 10/12/16 00:30 (Trandate Inj) 10 mg Q1H PRN IV 10/12/16 00:30 (Catapres) 0.1 mg Q6H PRN PO 1/3/17 00:30 10/16/16 05:15 (Norvasc) 2.5 mg DAILY PO 10/12/16 09:00 10/17/16 09:02 (NS Flush) 2 ml UNSCH PRN IVF 10/12/16 00:30 IV Flush 2 ml 2 ml BID IVF 10/12/16 09:00 10/16/16 09:27 (D5-NS + KCl 20 Meq Inj) 1,000 ml @ 30 mls/hr Q24H IV 10/12/16 00:20 10/14/16 22:58 (Colace) 100 mg BID PO 10/12/16 09:00 10/17/16 09:02 (Protonix) 40 mg DAILY PO 10/12/16 09:00 10/17/16 09:02 (Zofran Inj) 4 mg Q6H PRN IV 10/12/16 00:30 (Phenergan Inj) 25 mg Q4H PRN IM 10/12/16 00:30 (Coreg) 3.125 mg Q12HR PO 10/12/16 09:00 10/17/16 09:02 (Cymbalta Dr) 60 mg HS PO 10/12/16 21:00 10/16/16 20:52 (Ferrous Sulfate) 325 mg TID PO 10/12/16 09:00 10/17/16 09:02 (Proscar) 5 mg DAILY PO 10/12/16 09:00 10/17/16 09:02 (Neurontin) 300 mg Q8HR PO 10/12/16 06:00 10/17/16 06:14 (Keppra) 500 mg Q12HR PO 10/12/16 09:00 10/17/16 09:02 (Prinivil) 5 mg DAILY PO 10/12/16 09:00 10/17/16 09:02 (Singulair) 10 mg DAILY PO 10/12/16 09:00 10/17/16 09:02 (Tears Naturale Opth Soln) 1 drop Q8HR PRN EACH EYE 10/12/16 00:30 (Ultram) 50 mg Q6H PRN PO 10/12/16 00:30 10/15/16 21:54 (Pill Splitter) 1 ea UNSCH PRN OTHER 10/12/16 00:45 (D50w (Vial) Inj) 25 ml UNSCH PRN IV PUSH 10/12/16 00:45 10/12/16 17:04 (Glucagon Inj) 1 mg UNSCH PRN OTHER 10/12/16 00:45 Lorazepam 0.5 mg 0.5 mg Q15M PRN IV PUSH 10/12/16 15:00 10/14/16 22:55 (Unasyn Inj/NS Inj) 100 ml @ 200 mls/hr Q6H IV 10/17/16 11:00 A/P Assessment and Plan Cranial mass Head CT showing bifrontal vasogenic edema with possible mass in the left frontal lobe. He was admitted to neurosurgery. Further imaging showed: Straightening of cervical lordosis with at least mild AP canal stenosis at every level between C2 and T1 and mild impressions on the anterior surface of the cord; Questionable small cord signal abnormality at C3-4, possibly edema or myelomalacia. Brain MRI showed: Enhancing 2.9 cm mass in right frontal lobe possibly associated with some hemorrhage with surrounding vasogenic edema and mild mass effect as above; There are 2 small areas of signal abnormality in the left parietal lobe and left occipital lobe peripherally of uncertain etiology but possibly related to prior small infarcts. Oncology was consulted and hospice was then consulted. Family still not sure about hospice. - Keppra for seizure prophylaxis. - management per NS. - follow up with oncology. - PT/OT/ST. - consider palliative care consult. History of stroke With residual right upper extremity weakness. - hold Xarelto at this time per neurosurgery. COPD With chronic respiratory failure on 2 L oxygen continuously. CXR unremarkable. - continue duo nebs as needed and oxygen. Type 2 diabetes On glipizide as an outpt. - hold his glipizide while he is inpatient and start an insulin sliding scale. Glucose well controlled 10/17. - continue Neurontin. Hypertension Blood pressure has been elevated. - Increase lisinopril 10/17. Continue Norvasc and Coreg. Recent left shoulder fracture The pt was at rehab prior to admission. - being treated nonoperatively. - outpt follow-up with ortho. Coronary artery disease With history of 2 stents and cardiac arrest. Currently he is not on aspirin as reported at [facility] and rehabilitation. He is on Xarelto for the history of stroke. - Xarelto is being held by neurosurgery. - Hold Lipitor as well due to association with intracerebral hemorrhage. Chronic anemia Stable. - continue ferrous sulfate. UTI Urine culture growing enterococcus. - antibiotics changed to Unasyn 10/17. DVT prophylaxis with SCDs. Discharge Planning Per primary. Francis Lombardo DO Oct 17, 2016 10:19
[2016-10-17] MEDS: AMPICILLIN-SULBACTAM INJ 3 GM in SODIUM CHLORIDE 0.9% INJ 100 ML IV SCH ×3 (11:00→22:07)
[2016-10-17] MEDS: DULoxetine HCl DR 60 MG CAP PO SCH (21:59)
--- NOTE | 2016-10-17 22:32 | HHI.NSPN ---
History Chief Complaint: no complaint Interval History 76-year-old male recently placed in assisted facility following upper extremity fracture. Admitted 10/12/16 due to acute onset altered mental status and confusion. Initial CT scan and MRI brain revealed right frontal lesion with moderate surrounding edema most consistent with metastatic neoplasm. MRI cervical spine reveals abnormal signal intensity lesion upper cervical cord also suspicious for metastatic lesion. Patient's physical examination consistent with significant cervical myelopathy. CT scan chest abdomen and pelvis negative for primary disease. Patient with history of multiple skin squamous cell carcinomas with recent resection of scalp lesion . Exam Results Vital Signs Date Time Temp Pulse Resp B/P Pulse Ox O2 Delivery O2 Flow Rate FiO2 10/17/16 20:00 99.8 75 20 135/65 99 10/17/16 11:11 Nasal Cannula 2.00 Intake and Output 10/16/16 10/16/16 10/17/16 08:00 16:00 00:00 Intake Total 120 ml 240 ml 526 ml Output Total 450 ml 200 ml Balance -330 ml 240 ml 326 ml Physical Examination Patient resting quietly in bed Respirations clear to auscultation Cardiac regular without murmur Abdomen soft and nontender No significant lower extremity edema Awake and relatively alert Speech clear, somewhat slow He knows that he is in the hospital. States that his did not come to see him today He will follow simple commands Moderate conjugate extraocular movements Moves all extremities to command with persistent weakness proximal left upper extremity and distal right greater than left upper extremity with contractures right hand due to previous CVA. Lower extremity motor function mostly 3/5 proximal, 4-5/5 distal Significant bilateral You's response and bilateral sustained ankle clonus. Medical Decision Making Impression and Plan Impression: 1. Right frontal lesion-most consistent with metastatic neoplasm 2. 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 History of squamous cell carcinoma of the skin with multiple lesions removed 4. COPD 5. Hypertension 6. Coronary artery disease 7. Peripheral neuropathy 8. History of BPH 9. Dyslipidemia 10. Type 2 diabetes 11. Previous CVA with residual right upper extremity paresis Plan: Discussed 10/14/[address] Vides, oncology, and 10/15/[address] Chloe Katz, primary care physician. Mental status stable to past couple of days Patient with relatively poor functional status. Patient's is agreeable with hospice consult-request submitted. Diabetes: Continuing sliding scale insulin Hypertension: Continuing home medications Previous CVA: Xarelto held due to probable small amount of hemorrhage at the right frontal brain lesion as well as possible need for biopsy or other invasive measures. Medicine service following. Santy Romo MD Oct 17, 2016 22:32
[2016-10-18] VITALS (10 sets, daily range): BP systolic 106–163; BP diastolic 56–73; PULSE 64–82; RESP 18–19; TEMP 96.9–99; O2SAT 90–98
[2016-10-18] MEDS: D5-NS + KCL 20 MEQ INJ 1,000 ML IV SCH (00:44)
[2016-10-18] MEDS: GABAPENTIN 300 MG CAP PO SCH ×3 (05:15→16:48)
[2016-10-18] MEDS: AMPICILLIN-SULBACTAM INJ 3 GM in SODIUM CHLORIDE 0.9% INJ 100 ML IV SCH ×4 (05:15→22:22)
[2016-10-18] MEDS: INSULIN NovoLIN REGULAR SUPPLEMENTAL SCALE SQ SCH ×4 (06:46→21:00)
[2016-10-18] MEDS: DOCUSATE SODIUM 100 MG CAP PO SCH ×2 (09:56→21:05)
[2016-10-18] MEDS: FERROUS SULFATE 325 MG (65 MG ELEMENTAL IRON) TAB PO SCH ×3 (09:56→16:48)
[2016-10-18] MEDS: LISINOPRIL 20 MG TAB PO SCH (09:56)
[2016-10-18] MEDS: CARVEDILOL 3.125 MG TAB PO SCH ×2 (09:56→21:06)
[2016-10-18] MEDS: FINASTERIDE 5 MG TAB PO SCH (09:56)
[2016-10-18] MEDS: levETIRAcetam 500 MG TAB PO SCH ×2 (09:56→21:06)
[2016-10-18] MEDS: PANTOPRAZOLE SOD 40 MG DELAYED RELEASE TAB PO SCH (09:56)
[2016-10-18] MEDS: amLODIPine BESYLATE 5 MG TAB PO SCH (09:57)
[2016-10-18] MEDS: MONTELUKAST SODIUM 10 MG TAB PO SCH (09:57)
[2016-10-18] MEDS: SODIUM CHLORIDE 0.9% FLUSH 5 ML FLUSH IVF SCH ×2 (10:00→21:07)
--- NOTE | 2016-10-18 14:54 | PD.CONS ---
Consult Service Palliative Care . Consult Requested By Dr. Romo . Primary Care Physician Philipp Link MD . Reason for Consultation a. To assist with evaluation and management of symptoms including: pain, confusion b. To assist medical decision maker(s) with: better understanding of current medical conditions; weighing benefits/burdens of medical treatment options; making medical treatment decisions. . HPI History of Present Illness Mr. Braxton is a 76-year-old male who was transferred from [facility] to [facility] in [place] on 10/11/16 via EMS for evaluation of altered mental status. His past medical history includes diabetes , COPD (on continuous oxygen), history of melanoma, previous CVA - on Xarelto, HTN, CAD, PVD, dyslipidemia, BPH, peripheral neuropathy, Alzheimer's disease, arthritis, depression/PTSD, PEA s/p [place] - 06/14/16, history of diverticulitis, GERD , gout, CKD, NINA - on Trilogy CPA, history of shingles, seizure disorder, spinal stenosis and Parkinson's disease. Mr. Braxton was recuperating at [facility] status post a left shoulder fracture. The patient had developed progressively worsening confusion and agitation over several days. At baseline the patient is mentally sharp per his . The patient complained of intermittent headaches which is not typical for him. Of note, the patient has a history of extensive melanoma. He had a melanoma removed and radiated on his face approximately 4 years ago. He also has a large melanoma on his right anterior forearm which was going to be removed, but has been put on hold given his numerous health issues. The patient and his live in [place] and she stated he is normally hospitalized at [facility] in [place]. Additional diagnostic findings while in the ED: * Vital signs: Pulse 67, respirations 18, blood pressure 171/84, oxygen saturation 100% on 2 L via nasal cannula, oral temperature 98.4 * WBC: 11.8, hemoglobin 9.9, hematocrit 32.0, platelets 492, neutrophils 6.7% * Sodium: 145, potassium 4.1, chloride 106, carbon dioxide 31.3, glucose 68, calcium 9.4 * BUN: 20, creatinine 0.77, GFR 98 * Total bilirubin: 0.3, AST 20, ALT 19, alkaline phosphatase 229 * Total creatine kinase: 64 * Troponin: 0.06 * Total protein: 7.6, albumin 3.1 * Urinalysis with trace blood and rare bacteriaculture indicated. * Urine culture: + Enterococcus Faecalis * CT head: Bifrontal vasogenic edema of concern for underlying mass(es), especially on the right. No hemorrhage or midline shift. Nonemergent MRI of the brain with and without contrast recommended. * Chest x-ray: No evidence of acute cardiopulmonary disease * EKG shows sinus rhythm with leftward axis and no acute ST elevation or depression. The patient was admitted to neurosurgery services under Dr. Romo and was transferred to [facility] in [place]. Initial CT scan and MRI of the brain revealed right frontal lesions with moderate surrounding edema most consistent with metastatic disease. MRI of the cervical spine reveals abnormal signal intensity lesion upper cervical cord which is concerning for a metastatic lesion. Patient's examination is consistent with significant cervical myelopathy. CT scan chest and abdomen/pelvis on 10/13/16 showed no evidence of primary or metastatic disease. Oncology was consulted. Although neurosurgical resection of the mass would provide a definitive diagnosis and could also be therapeutic, given his poor health in significant cognitive deficits he is not a good candidate for surgical resection. Dr. Vides (oncology) and Dr. Romo (neurosurgery) agree this patient will likely not benefit from excision of mass, biopsy of mass or any attempted therapy. Hospice was consulted and met with the patient and his who were not ready to make a decision at that time - hospice continues to follow. Palliative Care was consulted to assist with symptom management and to discuss with the patient/family the benefits and burdens of his current illnesses and the options regarding future care. . Function/Cognitive Trajectory The patient is a frail 76-year-old male with a complex medical history. There is been significant deterioration in his health during the past several months and multiple medical problems have emerged during the past year. He has had increased confusion. He was undergoing rehabilitation at [facility] after fracturing his left shoulder. Review of Systems ROS Limitations: Altered Mental Status, Poor Historian Constitutional: COMPLAINS OF: Dizziness, Pain, Generalized weakness Ears, nose, mouth, throat: DENIES: Vertigo, Oral lesions Respiratory: DENIES: Shortness of breath Cardiovascular: DENIES: Chest pain, Palpitations Musculoskeletal: COMPLAINS OF: Joint pain, Muscle aches Neurologic: COMPLAINS OF: Abnormal gait, Localized weakness, Poor Balance Psychiatric: COMPLAINS OF: Confusion Past Family Social History Coded Allergies: No Known Allergies (Unverified , 10/11/16) Past Medical History Alzheimer's disease Arthritis PTSD/Depression Malignant melanoma scalp, right upper extremity melanoma resection pending. Cardiac arrest s/p [place] - 06/14/16 Dyslipidemia Seizure disorder BPH Peripheral vascular disease COPD, 2-3L via nasal cannula continuous. 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 Past Surgical History Cholecystectomy Coronary stent 2 Right cataract surgery Hiatal hernia repair Previous resection melanoma of the scalp, right upper extremity melanoma resection pending. . Reported Medications Duoneb (Ipratropium-Albuterol Neb) 0.5-2.5 Mg/3 Ml Neb 1 Nebule INH Q6HR NEB Coreg (Carvedilol) 3.125 Mg Tab 3.125 Mg PO Q12HR Artificial Tears Opth Drops (Polyvinyl Alcohol) 1.4% Soln 1-2 Drop EACH EYE Q8HR PRN Singulair (Montelukast Sodium) 10 Mg Tab 10 Mg PO DAILY Finasteride 5 Mg Tab 5 Mg PO DAILY Do not crush. Glipizide 5 Mg Tab 5 Mg PO DAILY Take 30 minutes before a meal Spiriva Handihaler (Tiotropium Inh) 18 Mcg Cap 18 Mcg INH DAILY 1 capsule = 18 mcg Lipitor (Atorvastatin Calcium) 10 Mg Tab 10 Mg PO HS Cymbalta DR (Duloxetine HCl) 60 Mg Capdr 60 Mg PO HS Famotidine 20 Mg Tab 20 Mg PO DAILY Lisinopril 5 Mg Tab 5 Mg PO DAILY Gabapentin 300 Mg Cap 300 Mg PO Q8HR Keppra (Levetiracetam) 500 Mg Tab 500 Mg PO Q12HR Xarelto (Rivaroxaban) 10 Mg Tab 10 Mg PO DAILY Tylenol (Acetaminophen) 325 Mg Tab 650 Mg PO Q4H PRN Tramadol (Tramadol HCl) 50 Mg Tab 50 Mg PO Q6H PRN Ferrous Sulfate 325 Mg Tab 325 Mg PO TID Duoneb (Ipratropium-Albuterol Neb) 0.5-2.5 Mg/3 Ml Neb 1 Nebule INH Q6HR NEB . Current Medications Medications (Trade) Dose Ordered Sig/Mickey Route Start Time Stop Time Status Last Admin (Narcan Inj) 0.4 mg UNSCH PRN IV 10/12/16 00:30 (Trandate Inj) 10 mg Q1H PRN IV 10/12/16 00:30 (Catapres) 0.1 mg Q6H PRN PO 10/12/16 00:30 10/16/16 05:15 (Norvasc) 2.5 mg DAILY PO 10/12/16 09:00 10/18/16 09:57 (NS Flush) 2 ml UNSCH PRN IVF 10/12/16 00:30 IV Flush 2 ml 2 ml BID IVF 10/12/16 09:00 10/18/16 10:00 (D5-NS + KCl 20 Meq Inj) 1,000 ml @ 30 mls/hr Q24H IV 10/12/16 00:20 10/18/16 00:44 (Colace) 100 mg BID PO 10/12/16 09:00 10/18/16 09:56 (Protonix) 40 mg DAILY PO 10/12/16 09:00 10/18/16 09:56 (Zofran Inj) 4 mg Q6H PRN IV 10/12/16 00:30 (Phenergan Inj) 25 mg Q4H PRN IM 10/12/16 00:30 (Coreg) 3.125 mg Q12HR PO 10/12/16 09:00 10/18/16 09:56 (Cymbalta Dr) 60 mg HS PO 10/12/16 21:00 10/17/16 21:59 (Ferrous Sulfate) 325 mg TID PO 10/12/16 09:00 10/18/16 12:39 (Proscar) 5 mg DAILY PO 10/12/16 09:00 10/18/16 09:56 (Neurontin) 300 mg Q8HR PO 10/12/16 06:00 10/18/16 05:15 (Keppra) 500 mg Q12HR PO 10/12/16 09:00 10/18/16 09:56 (Singulair) 10 mg DAILY PO 10/12/16 09:00 10/18/16 09:57 (Tears Naturale Opth Soln) 1 drop Q8HR PRN EACH EYE 10/12/16 00:30 (Ultram) 50 mg Q6H PRN PO 10/12/16 00:30 10/15/16 21:54 (Pill Splitter) 1 ea UNSCH PRN OTHER 10/12/16 00:45 (D50w (Vial) Inj) 25 ml UNSCH PRN IV PUSH 10/12/16 00:45 10/12/16 17:04 (Glucagon Inj) 1 mg UNSCH PRN OTHER 10/12/16 00:45 Lorazepam 0.5 mg 0.5 mg Q15M PRN IV PUSH 10/12/16 15:00 10/14/16 22:55 (Unasyn Inj/NS Inj) 100 ml @ 200 mls/hr Q6H IV 10/17/16 11:00 10/18/16 11:00 (Prinivil) 20 mg DAILY PO 10/18/16 09:00 10/18/16 09:56 . Family History Unknown, more information pending family meeting. . Substance Use Tobacco: Quit smoking cigars and pipes 10+ years ago. Alcohol: None known Prescription med abuse: None known Illicits: None known . Psychosocial History Mr. Braxton was born in [place]. The patient was with 2 young children , twin boy and girl. His and he later his current , Dianne. They meet in [place]. She was a single mother of 3 boys. They have now been for approximately 33 years and live in [place]. 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 . Spiritual/Cultural Factors Congregation kavin . Living Will: Never completed Health Care Surrogate: Never completed Durable Power of Visualization Developer: Never completed Today's verbally stated goals: Patient's only verbalized goal today is "to go home" . . Family/friends goals: Patient's indicating she plans to to bring her spouse home no matter what she has to do. . Ethical and Legal Issues Per [place] statutes, in the absence of written advanced directives healthcare proxy decision-making falls to the patient's Dianne Braxton. . Physical Exam Vital Signs Date Time Temp Pulse Resp B/P Pulse Ox O2 Delivery O2 Flow Rate FiO2 10/18/16 12:22 90 21 10/18/16 12:00 97.4 73 18 108/56 95 10/18/16 08:00 98.6 65 18 142/68 90 10/18/16 04:00 99.0 75 19 136/64 93 10/18/16 03:15 64 10/18/16 00:00 98.3 76 19 163/73 96 10/17/16 20:20 99 Nasal Cannula 2.00 10/17/16 20:00 99.8 75 20 135/65 99 10/17/16 16:00 98.6 67 20 107/55 99 . 10/17/16 10/18/16 19:00 07:00 Intake Total 360 ml Balance 360 ml Intake Oral 360 ml # Voids 3 # Bowel Movements 1 . Exam CONSTITUTIONAL/GENERAL: This is an adequately nourished patient, in no apparent distress. TUBES/LINES/DRAINS: PIV x1 SKIN: Large raised area of dark purple discoloration on his anterior right forearm. Skin temperature appropriate. Pale. HEAD: Atraumatic. Normocephalic. EYES: Pupils equal and round and reactive. Extraocular motions intact. No scleral icterus. No injection or drainage. Fundi not examined. ENT: Hearing grossly normal. Nose without bleeding or purulent drainage. Throat without visible erythema, exudates, masses, or lesions. NECK: Trachea midline. Supple, nontender. No palpable thyroid enlargement or nodularity. CARDIOVASCULAR: Regular rate and rhythm without murmurs, gallops, or rubs. No JVD. Peripheral pulses symmetric. RESPIRATORY/CHEST: Symmetric, unlabored respirations. Breath sounds equal bilaterally. No wheezes, rales, or rhonchi. GASTROINTESTINAL: Abdomen soft, non-tender, nondistended. No guarding. Bowel sounds present. GENITOURINARY: Without palpable bladder distension. MUSCULOSKELETAL: Extremities without clubbing, cyanosis, or edema. LYMPHATICS: No palpable cervical or supraclavicular adenopathy. NEUROLOGICAL: Awake and alert, oriented to self. Follows commands. Moves all extremities. Upper extremities with 3 out of 5 strength and lower extremities with 4 out of 5 strength. PSYCHIATRIC: No apparent hallucinations or other psychotic thought process. . Diagnostic Tests Laboratory Laboratory Tests Test 10/14/16 07:17 White Blood Count 8.8 TH/MM3 Red Blood Count 3.35 MIL/MM3 Hemoglobin 10.1 GM/DL Hematocrit 31.3 % Mean Corpuscular Volume 93.6 FL Mean Corpuscular Hemoglobin 30.1 PG Mean Corpuscular Hemoglobin 32.1 % Concent Red Cell Distribution Width 14.6 % Platelet Count 336 TH/MM3 Mean Platelet Volume 8.5 FL Neutrophils (%) (Auto) 55.2 % Lymphocytes (%) (Auto) 32.6 % Monocytes (%) (Auto) 9.5 % Eosinophils (%) (Auto) 2.4 % Basophils (%) (Auto) 0.3 % Neutrophils # (Auto) 4.9 TH/MM3 Lymphocytes # (Auto) 2.9 TH/MM3 Monocytes # (Auto) 0.8 TH/MM3 Eosinophils # (Auto) 0.2 TH/MM3 Basophils # (Auto) 0.0 TH/MM3 CBC Comment DIFF FINAL Differential Comment . Result Diagram: 10/14/16 0717 Patient/Family Conference Present at Family Conference: Spoke with patient's via telephone and patient at bedside. . Family Conference Location: Bedside, Telephone Issues Discussed: * Palliative care role, purpose, approach * Additional medical, psychosocial, and spiritual history * Patients general health, functional status, and cognitive changes in the months leading up to the current hospitalization * Patient/family understanding of the current medical problems * Patient/family understanding of prognosis * Patients goals of care as best understood from advance directives and/or conversations and/or values * Current medical treatment options and benefits/burdens of those options * Likely scenarios comparing ongoing aggressive care with a transition to comfort measures only * Questions answered to the best of my ability * Palliative care contact information provided . Assessment and Plan Disease Oriented Problem List: (1) Altered mental status (2) Brain tumor (3) Elevated troponin I level (4) Myocardial infarction greater than 8 weeks ago (5) Shoulder fracture, left (6) History of CVA (cerebrovascular accident) (7) BPH (benign prostatic hyperplasia) (8) Hypertension (9) Peripheral vascular disease (10) Malignant melanoma (11) Diabetes (12) Coronary artery disease (13) COPD (chronic obstructive pulmonary disease) Symptom Scale: (1) Pain 0-10 Scale: Unable to quantify Comment: Patient reporting pain in left shoulder, described as throbbing. Unable to rate pain in systole. Additional causes of pain may include melanoma , invasive lines, tumors, bedbound status, inability, etc. Tramadol 50mg is available q6 hour PRN for pain. Last administered on 10/15/16. (2) Confusion 0-10 Scale: Unable to quantify Pertinent Non-Medical Issues Psychosocial: Mr. Braxton was born in [place]. The patient was with 2 young children, twin boy and girl. His and he later his current , Dianne. They meet in [place]. She was a single mother of 3 boys. They have now been for approximately 33 years and live in [place]. 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 Spiritual: Congregation kavin Legal: Per [place] statutes, in the absence of written advanced directives healthcare proxy decision-making falls to the patient's Dianne Braxton Ethical issues impacting care: No known apical issues impacting care. . Important Contacts Dianne Braxton, spouse: [phone] Kortney Boland, daughter: [phone] . Prognosis Patient is a 76 year old male with an extensive medical history. History of malignant melanoma. Admitted with progressive confusion. Initial CT scan and MRI of the brain revealed right frontal lesions with moderate surrounding edema most consistent with metastatic disease. MRI of the cervical spine reveals abnormal signal intensity lesion upper cervical cord which is concerning for a metastatic lesion. Although neurosurgical resection of the mass would provide a definitive diagnosis and could also be therapeutic, given his poor health in significant cognitive deficits he is not a good candidate for surgical resection. Dr. Vides (oncology) and Dr. Romo (neurosurgery) agree this patient will likely not benefit from excision of mass, biopsy of mass or any attempted therapy. Poor prognosis. . Code Status: Full Code Plan * FULL CODE. * Decision-making: Per [place] statutes, in absence of written advanced directives healthcare proxy decision-making falls to the patient's Dianne Braxton. * Goals: Goals remain aggressive, pending family meeting tomorrow at 10/19/16. Both patient's and patient verbalize goals to "go home". * Hospice was consulted and continues to follow this patient. Patient's stating she does not want hospice and she will do what she needs to do to get her home. * Tentative family meeting planned for tomorrow 10/19/16. * Symptom managementpain: Patient reporting pain in left shoulder, described as throbbing. Unable to rate pain in systole. Additional causes of pain may include melanoma, invasive lines, tumors, bedbound status, inability, etc. Tramadol 50mg is available q6 hour PRN for pain. Last administered on 10/15/16. * Acquisition Advisor consult placed. * Discussed the process of cardiopulmonary resuscitation with the patient's . She states the patient has been successfully resuscitated twice since June, and he would want to have everything done again in the event his heart were to stop. CODE STATUS updated in EMR, patient will remain a FULL CODE. * Palliative care contact information provided to both patient and patient's . * Palliative care will continue to follow this patient throughout his hospitalization to establish trust, assist with symptom and clarification of medical treatment goals. . Thank you for the opportunity to participate in the care of Mr. Braxton. Lovely Altman Oct 18, 2016 14:21
[2016-10-18] MEDS: DULoxetine HCl DR 60 MG CAP PO SCH (21:05)
--- NOTE | 2016-10-18 22:06 | HHI.NSPN ---
History Chief Complaint: no complaint Interval History 76-year-old male recently placed in senior living facility following upper extremity fracture. Admitted 10/12/16 due to acute onset altered mental status and confusion. Initial CT scan and MRI brain revealed right frontal lesion with moderate surrounding edema most consistent with metastatic neoplasm. MRI cervical spine reveals abnormal signal intensity lesion upper cervical cord also suspicious for metastatic lesion. Patient's physical examination consistent with significant cervical myelopathy. CT scan chest abdomen and pelvis negative for primary disease. Patient with history of multiple skin squamous cell carcinomas with recent resection of scalp lesion . Exam Results Vital Signs Date Time Temp Pulse Resp B/P Pulse Ox O2 Delivery O2 Flow Rate FiO2 10/18/16 21:12 Bi-Pap 10/18/16 20:30 94 6.00 10/18/16 19:31 75 10/18/16 16:00 98.9 18 106/72 10/18/16 12:22 21 Intake and Output 10/17/16 10/17/16 10/18/16 08:00 16:00 00:00 Intake Total 60 ml 240 ml Balance 60 ml 240 ml Physical Examination Patient resting quietly in bed Respirations clear to auscultation Cardiac regular without murmur Abdomen soft and nontender No significant lower extremity edema Awake and relatively alert Speech clear, somewhat slow He knows that he is in the hospital. States that his did not come to see him today it is 9 o'clock at night, and he states that it is 9 in the morning and his will be in to see him soon. Overall poor judgment and insight. He will follow simple commands Moderate conjugate extraocular movements Moves all extremities to command with persistent weakness proximal left upper extremity and distal right greater than left upper extremity with contractures right hand due to previous CVA. Lower extremity motor function mostly 3/5 proximal, 4-5/5 distal Significant bilateral You's response and bilateral sustained ankle clonus. Medical Decision Making Impression and Plan Impression: 1. Right frontal lesion-most consistent with metastatic neoplasm 2. 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 History of squamous cell carcinoma of the skin with multiple lesions removed 4. COPD 5. Hypertension 6. Coronary artery disease 7. Peripheral neuropathy 8. History of BPH 9. Dyslipidemia 10. Type 2 diabetes 11. Previous CVA with residual right upper extremity paresis Plan: Discussed with nursing staff today. Patient has been unable to get out of bed due to significant instability. Requires assistance to sit up. His exam continues to indicate significant myelopathy, consistent with MRI cervical spine findings. Discussed 10/14/[address] Vides, oncology, and 10/15/[address] Chloe Katz, primary care physician. Mental status stable to past couple of days Patient with relatively poor functional status. Palliative care consultation place. Plan to meet with the patient's Diabetes: Continuing sliding scale insulin Hypertension: Continuing home medications Previous CVA: Xarelto held due to probable small amount of hemorrhage at the right frontal brain lesion as well as possible need for biopsy or other invasive measures. Medicine service following. Santy Romo MD Oct 18, 2016 22:06
[2016-10-18] MEDS: LORazepam 2 MG/ML VIAL IV PUSH PRN (22:21)
[2016-10-19] VITALS (8 sets, daily range): BP systolic 96–176; BP diastolic 49–82; PULSE 52–76; RESP 18–20; TEMP 95.5–97.2; O2SAT 93–100
[2016-10-19] MEDS: D5-NS + KCL 20 MEQ INJ 1,000 ML IV SCH ×2 (00:58→23:59)
[2016-10-19] MEDS: AMPICILLIN-SULBACTAM INJ 3 GM in SODIUM CHLORIDE 0.9% INJ 100 ML IV SCH ×4 (04:53→22:32)
[2016-10-19] MEDS: traMADol HCL 50 MG TAB PO PRN (05:06)
[2016-10-19] MEDS: cloNIDine HCL 0.1 MG TAB PO PRN (05:06)
[2016-10-19] MEDS: GABAPENTIN 300 MG CAP PO SCH ×4 (05:07→22:31)
[2016-10-19] MEDS: INSULIN NovoLIN REGULAR SUPPLEMENTAL SCALE SQ SCH ×4 (06:20→21:00)
[2016-10-19] MEDS: MONTELUKAST SODIUM 10 MG TAB PO SCH (09:33)
[2016-10-19] MEDS: LISINOPRIL 20 MG TAB PO SCH (09:33)
[2016-10-19] MEDS: amLODIPine BESYLATE 5 MG TAB PO SCH (09:33)
[2016-10-19] MEDS: levETIRAcetam 500 MG TAB PO SCH ×2 (09:33→22:31)
[2016-10-19] MEDS: DOCUSATE SODIUM 100 MG CAP PO SCH ×3 (09:33→22:31)
[2016-10-19] MEDS: CARVEDILOL 3.125 MG TAB PO SCH ×3 (09:33→22:31)
[2016-10-19] MEDS: FERROUS SULFATE 325 MG (65 MG ELEMENTAL IRON) TAB PO SCH ×3 (09:33→18:00)
[2016-10-19] MEDS: PANTOPRAZOLE SOD 40 MG DELAYED RELEASE TAB PO SCH (09:35)
[2016-10-19] MEDS: FINASTERIDE 5 MG TAB PO SCH (09:35)
[2016-10-19] MEDS: SODIUM CHLORIDE 0.9% FLUSH 5 ML FLUSH IVF SCH ×2 (09:36→22:31)
--- NOTE | 2016-10-19 12:12 | HHI.HCPN ---
Reason for visit a. To assist with evaluation and management of symptoms including: pain, confusion b. To assist medical decision maker(s) with: better understanding of current medical conditions; weighing benefits/burdens of medical treatment options; making medical treatment decisions. . Subjective/Interval History . Mr. Braxton is a 76-year-old male admitted 10/12/16 due to acute onset altered mental status and confusion. ==Initial CT scan and MRI of the brain revealed right frontal lesions with moderate surrounding edema most consistent with metastatic disease. ==MRI of the cervical spine reveals abnormal signal intensity lesion upper cervical cord which is concerning for a metastatic lesion. ==CT scan chest and abdomen/pelvis on 10/13/16 showed no evidence of primary or metastatic disease. Oncology has been consulted. Given the patient's poor health and significant cognitive deficits, both Dr. Vides (oncology) and Dr. Romo (neurosurgery) agree he is not a good candidate for surgical resection/biopsy or any attempted therapy. Recommendations for comfort focused care. Hospice has met with the patient/family previously. Pt seen to follow up on comfort, goals. Patient presents sitting upright in recliner eating lunch. Appetite remains good, but patient is unable to feed himself. He remains confused, speech at times nonsensical. Oriented to self only. Recent left shoulder fracture being managed conservatively. Patient has been unable to get out of bed due to significant instability, requires assistance to sit up. He denies pain on exam. Tramadol available PRN - last received 10/19/16. . Family/friend interactions . Discussion with Sr. Sanchez, patient's and daughter. Recommendations were made for comfort focused care based on neurosurgery and oncology recommendations. Hospice has been consulted, family refused admission. Today family stating they are not opposed to hospice, but the patient/family wants to go home instead of to rehabilitation or a care center. . Advance Directives Living Will: Never completed Health Care Surrogate: Never completed Durable Power of Hoisting Laborer: Never completed Objective Vital Signs Date Time Temp Pulse Resp B/P Pulse Ox O2 Delivery O2 Flow Rate FiO2 10/19/16 10:25 99 Nasal Cannula 3.00 10/19/16 08:00 95.5 56 20 125/67 99 10/19/16 06:48 64 19 148/69 100 10/19/16 06:19 19 10/19/16 05:13 92 Nasal Cannula 2.00 1/10/17 04:00 97.0 74 18 176/82 93 10/19/16 00:00 96.9 76 18 160/76 93 10/18/16 23:45 Bi-Pap 10/18/16 21:12 Bi-Pap 10/18/16 20:30 94 HOME AVAPS 6.00 10/18/16 20:00 98.1 82 18 151/72 93 10/18/16 19:31 75 10/18/16 16:00 98.9 64 18 106/72 98 10/18/16 12:22 90 21 Intake & Output 10/19/16 10/19/16 07:00 19:00 Intake Total 1245 ml Output Total 200 ml Balance 1045 ml Intake Oral 240 ml IV Total 1005 ml Output Urine Total 200 ml # Bowel Movements 0 . . Physical Exam . CONSTITUTIONAL/GENERAL: This is an adequately nourished patient, in no apparent distress. TUBES/LINES/DRAINS: PIV x1 SKIN: Large raised area of dark purple discoloration on his anterior right forearm. Skin temperature appropriate. Pale. HEAD: Atraumatic. Normocephalic. EYES: Pupils equal and round and reactive. No scleral icterus. ENT: Hearing grossly normal. Nose without bleeding or purulent drainage. NECK: Trachea midline. CARDIOVASCULAR: Regular rate and rhythm without murmurs, gallops, or rubs. RESPIRATORY/CHEST: Symmetric, unlabored respirations. No wheezes, rales, or rhonchi. GASTROINTESTINAL: Abdomen soft, non-tender, nondistended. No guarding. Bowel sounds present. GENITOURINARY: Without palpable bladder distension. MUSCULOSKELETAL: Extremities without clubbing, cyanosis, or edema. NEUROLOGICAL: Oriented to self only. Speech is nonsensical at times. Follows commands. Moves all extremities. PSYCHIATRIC: No apparent hallucinations or other psychotic thought process. . Assessment and Plan Disease Oriented Problem List: (1) Altered mental status (2) Brain tumor (3) Elevated troponin I level (4) Myocardial infarction greater than 8 weeks ago (5) Shoulder fracture, left (6) History of CVA (cerebrovascular accident) (7) BPH (benign prostatic hyperplasia) (8) Hypertension (9) Peripheral vascular disease (10) Malignant melanoma (11) Diabetes (12) Coronary artery disease (13) COPD (chronic obstructive pulmonary disease) Symptom Scale: (1) Pain 0-10 Scale: Unable to quantify Comment: Possible causes of pain may include melanoma, recent left shoulder fracture, invasive lines, tumors, bedbound status, immobility, etc. Tramadol 50mg is available q6 hour PRN for pain. (2) Confusion 0-10 Scale: Unable to quantify Pertinent Non-Medical Issues Psychosocial: Mr. Braxton was born in [place]. The patient was with 2 young children, twin boy and girl. His and he later his current , Dianne. They meet in [place]. She was a single mother of 3 boys. They have now been for approximately 33 years and live in [place]. 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 Spiritual: Zoroastrian kavin Legal: Per [place] statutes, in the absence of written advanced directives healthcare proxy decision-making falls to the patient's Dianne Braxton Ethical issues impacting care: No known apical issues impacting care. . Important Contacts Dianne Braxton, spouse: [phone] Kortney Boland, daughter: [phone] . Prognosis Patient is a 76 year old male with an extensive medical history. History of malignant melanoma. Admitted with progressive confusion. Initial CT scan and MRI of the brain revealed right frontal lesions with moderate surrounding edema most consistent with metastatic disease. MRI of the cervical spine reveals abnormal signal intensity lesion upper cervical cord which is concerning for a metastatic lesion. Although neurosurgical resection of the mass would provide a definitive diagnosis and could also be therapeutic, given his poor health in significant cognitive deficits he is not a good candidate for surgical resection. Dr. Vides (oncology) and Dr. Romo (neurosurgery) agree this patient will likely not benefit from excision of mass, biopsy of mass or any attempted therapy. Poor prognosis. . Code Status: Full Code Plan * FULL CODE. * Decision-making: Per [place] statutes, in absence of written advanced directives healthcare proxy decision-making falls to the patient's Dianne Braxton. * Goals: Return home * Case management consulted to obtain medical records from [facility], admission date 09/20/16. * Discussion with Sr. Sanchez, patient's and daughter. Recommendations were made for comfort focused care based on neurosurgery and oncology recommendations. * Hospice has been consulted, family refused admission. * Today family stating they are not opposed to hospice, but the patient/family wants to go home instead of to rehabilitation or a care center. Discussed the importance of safely discharging the patient. The patient is quite confused at times, weak, requiring significant care- his will be unable to provide all care independently. Family is considering hiring a private caregiver if necessary, and the patient's plans to contact [facility] to see if they can provide any additional services. * Symptom managementpain: Patient reporting pain in left shoulder, described as throbbing. Unable to rate pain in systole. Additional causes of pain may include melanoma, invasive lines, tumors, bedbound status, inability, etc. Tramadol 50mg is available q6 hour PRN for pain. Last administered on 10/19/16. * Discussed the process of cardiopulmonary resuscitation with the patient's . She states the patient has been successfully resuscitated twice since June, and he would want to have everything done again in the event his heart were to stop. CODE STATUS updated in EMR, patient will remain a FULL CODE. * Palliative care will continue to follow this patient throughout his hospitalization to establish trust, assist with symptom and clarification of medical treatment goals. . Attestation To help prompt me to consider important information that might be impacting today's encounter and assessment, information from prior notes written by myself or my colleagues may have been "brought forward" into today's note. My signature on this note, however, is an attestation that I personally performed the exam, history, and/or decision-making noted today, and, unless otherwise indicated, the interactions with patient, family, and staff as well as the review of records all occurred today. I also attest that the listed assessment and stated plan reflect my best clinical judgment today based on the combination of historical information, prior notes, and today's exam/ interactions. When time spent is documented, it refers only to time spent today by the signer, or if indicated, combined time spent today by collaborating physician/nurse practitioner. . Lovely Altman Oct 19, 2016 12:12 * Tentative family meeting planned for tomorrow 10/19/16. * Symptom managementpain: Patient reporting pain in left shoulder, described as throbbing. Unable to rate pain in systole. Additional causes of pain may include melanoma, invasive lines, tumors, bedbound status, inability, etc. Tramadol 50mg is available q6 hour PRN for pain. Last administered on 10/15/16. * Heat Sealing Machine Operator consult placed. * Discussed the process of cardiopulmonary resuscitation with the patient's . She states the patient has been successfully resuscitated twice since June, and he would want to have everything done again in the event his heart were to stop. CODE STATUS updated in EMR, patient will remain a FULL CODE. * Palliative care contact information provided to both patient and patient's . * Palliative care will continue to follow this patient throughout his hospitalization to establish trust, assist with symptom and clarification of medical treatment goals. . Attestation To help prompt me to consider important information that might be impacting today's encounter and assessment, information from prior notes written by myself or my colleagues may have been "brought forward" into today's note. My signature on this note, however, is an attestation that I personally performed the exam, history, and/or decision-making noted today, and, unless otherwise indicated, the interactions with patient, family, and staff as well as the review of records all occurred today. I also attest that the listed assessment and stated plan reflect my best clinical judgment today based on the combination of historical information, prior notes, and today's exam/ interactions. When time spent is documented, it refers only to time spent today by the signer, or if indicated, combined time spent today by collaborating physician/nurse practitioner. . Lovely Altman Oct 19, 2016 12:12
--- NOTE | 2016-10-19 14:04 | HHI.PR ---
Subjective Remarks Follow-up brain mass, cervical spine mass, confusion. Patient has no complaints at this time. Denies chest pain, dyspnea. Does remain confused. Objective Vitals Vital Signs Date Time Temp Pulse Resp B/P Pulse Ox O2 Delivery O2 Flow Rate FiO2 10/19/16 12:00 96.7 66 18 96/54 94 10/19/16 10:25 99 Nasal Cannula 3.00 10/19/16 08:00 95.5 56 20 125/67 99 10/19/16 06:48 64 19 148/69 100 10/19/16 06:19 19 10/19/16 05:13 92 Nasal Cannula 2.00 10/19/16 04:00 97.0 74 18 176/82 93 10/19/16 00:00 96.9 76 18 160/76 93 10/18/16 23:45 Bi-Pap 10/18/16 21:12 Bi-Pap 10/18/16 20:30 94 HOME AVAPS 6.00 10/18/16 20:00 98.1 82 18 151/72 93 10/18/16 19:31 75 10/18/16 16:00 98.9 64 18 106/72 98 I/O 10/18/16 10/18/16 10/18/16 10/19/16 10/19/16 10/19/16 07:00 15:00 23:00 07:00 15:00 23:00 Intake Total 120 ml 480 ml 995 ml 250 ml Output Total 600 ml 200 ml Balance 120 ml -120 ml 795 ml 250 ml Intake Oral 120 ml 480 ml 240 ml IV Total 755 ml 250 ml Output Urine Total 600 ml 200 ml # Voids 2 # Bowel Movements 1 0 Imaging Last Impressions Chest CT 10/13/16 0000 Signed Impressions: Service Date/Time: Thursday, October 13, 2016 15:27 - CONCLUSION: I do not see evidence for a primary or metastatic disease to the chest. Subclavian vein stenosis on the right as described above. Chad Iqbal MD FACR Cervical Spine MRI 10/13/16 0000 Signed Impressions: Service Date/Time: Thursday, October 13, 2016 15:40 - CONCLUSION: 1. Exam degraded by motion artifact. Straightening of cervical lordosis with at least mild AP canal stenosis at every level between C2 and T1 and mild impressions on the anterior surface of the cord. Questionable small cord signal abnormality at C3-4, possibly edema or myelomalacia. Tom Bell MD Brain MRI 10/13/16 0000 Signed Impressions: Service Date/Time: Thursday, October 13, 2016 15:40 - CONCLUSION: 1. Enhancing 2.9 cm mass in right frontal lobe possibly associated with some hemorrhage with surrounding vasogenic edema and mild mass effect as above. 2. There are 2 small areas of signal abnormality in the left parietal lobe and left occipital lobe peripherally of uncertain etiology but possibly related to prior small infarcts. Tom Bell MD Abdomen/Pelvis CT 10/13/16 0000 Signed Impressions: Service Date/Time: Thursday, October 13, 2016 15:27 - CONCLUSION: I do not see evidence for primary neoplasm. Chad Iqbal MD FACR Head CT 10/11/162138 Signed Impressions: Service Date/Time: Tuesday, October 11, 2016 22:02 - CONCLUSION: Bifrontal vasogenic edema of concern for underlying mass(es), especially on the right. No hemorrhage or midline shift. Nonemergent MRI of the brain with and without contrast recommended. Russel Schofield MD Chest X-Ray 10/11/162138 Signed Impressions: Service Date/Time: Tuesday, October 11, 2016 22:12 - CONCLUSION: No evidence of acute cardiopulmonary disease. Russel Schofield MD Objective Remarks General: Elderly male in no acute distress. Heart: Regular rate and rhythm. No murmur. Lungs: Clear to auscultation bilaterally. No wheezes, rales, or rhonchi. Breathing is nonlabored. Abdomen: Soft, nontender, nondistended. Extremities: No lower extremity edema. Psych: Alert, somewhat confused. Urinary Catheter: No Vascular Central Line Catheter: No A/P Problem List: (1) Brain tumor ICD Code: D49.6 Status: Acute (2) Encephalopathy ICD Code: G93.40 Status: Acute (3) Coronary artery disease ICD Code: I25.10 Status: Chronic (4) COPD (chronic obstructive pulmonary disease) ICD Code: J44.9 Status: Chronic (5) Diabetes ICD Code: E11.9 Status: Chronic (6) History of CVA (cerebrovascular accident) ICD Code: Z86.73 Status: Acute Assessment and Plan 1. Cranial mass, cervical mass: Likely metastatic. Patient does have history of melanoma. Appreciate neurosurgery and oncology recommendations. Not felt to be a good surgical candidate at this time. Appreciate palliative care recommendations as well. Hospice has been consulted. Continue Keppra for seizure prophylaxis. PT/OT/ST. 2. History of CVA with residual right upper extremity weakness: Xarelto on hold. 3. COPD: Chronic respiratory failure. On 2 L oxygen continuously. Continue bronchodilators as needed. 4. Diabetes mellitus type 2: Glipizide on hold. Monitor Accu-Cheks and cover with sliding scale insulin. 5. Hypertension: Continue lisinopril, Norvasc, Coreg. 6. Recent left shoulder fracture: Continue nonoperative treatment with physical therapy. Follow-up with orthopedic as outpatient. 7. Coronary artery disease: Patient has history of 2 stents and prior cardiac arrest. Patient is on Xarelto chronically, but that is currently on hold. Lipitor also on hold. 8. Chronic anemia: Stable. Continue iron sulfate. 9. UTI: Urine culture growing enterococcus. Continue antibiotics. 10. DVT prophylaxis: SCDs. 11. Discussion with palliative care and the patient's , daughter. Recommendations made for comfort care measures based on neurosurgery and oncology recommendations. Since family to consider hospice. They state that the patient wants to go home and that they would want the patient to go home instead of to rehabilitation or a care center. Jamaal Sanchez MD Oct 19, 2016 14:04
--- NOTE | 2016-10-19 19:11 | HHI.NSPN ---
History Chief Complaint: no complaint Interval History 76-year-old male recently placed in alf facility following upper extremity fracture. Admitted 10/12/16 due to acute onset altered mental status and confusion. Initial CT scan and MRI brain revealed right frontal lesion with moderate surrounding edema most consistent with metastatic neoplasm. MRI cervical spine reveals abnormal signal intensity lesion upper cervical cord also suspicious for metastatic lesion. Patient's physical examination consistent with significant cervical myelopathy. CT scan chest abdomen and pelvis negative for primary disease. Patient with history of multiple skin squamous cell carcinomas with recent resection of scalp lesion . Exam Results Vital Signs Date Time Temp Pulse Resp B/P Pulse Ox O2 Delivery O2 Flow Rate FiO2 10/19/16 16:00 97.2 52 18 98/49 100 10/19/16 10:25 Nasal Cannula 3.00 10/18/16 12:22 21 Intake and Output 10/18/16 10/18/16 10/19/16 08:00 16:00 00:00 Intake Total 120 ml 480 ml 995 ml Output Total 600 ml 200 ml Balance 120 ml -120 ml 795 ml Physical Examination Patient in bed with head of bed up. He is unable to sit up on the side of the bed without significant assistance, and cannot maintain good trunk control. Respirations clear to auscultation Cardiac regular without murmur Abdomen soft and nontender No significant lower extremity edema Awake and relatively alert Speech clear He knows that he is in the hospital. States he is in [place]. He does not know what month it is. Overall poor judgment and insight. He will follow simple commands Moderate conjugate extraocular movements Moves all extremities to command with persistent weakness proximal left upper extremity and distal right greater than left upper extremity with contractures right hand due to previous CVA. Lower extremity motor function mostly 3/5 proximal, 4/5 distal Significant bilateral You's response and bilateral sustained ankle clonus. Medical Decision Making Impression and Plan Impression: 1. Right frontal lesion-most consistent with metastatic neoplasm 2. 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 History of squamous cell carcinoma of the skin with multiple lesions removed 4. COPD 5. Hypertension 6. Coronary artery disease 7. Peripheral neuropathy 8. History of BPH 9. Dyslipidemia 10. Type 2 diabetes 11. 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 The patient's and daughter met with palliative care today. It appears that they are agreeable to home hospice care. His exam continues to indicate significant myelopathy, consistent with MRI cervical spine findings. Discussed 10/14/[address] Vides, oncology, and 10/15/[address] Chloe Katz, primary care physician. Mental status stable to past couple of days Patient with relatively poor functional status. Diabetes: Continuing sliding scale insulin Hypertension: Continuing home medications Previous CVA: Xarelto held due to probable small amount of hemorrhage at the right frontal brain lesion Santy Romo MD Oct 19, 2016 19:11
[2016-10-19] MEDS: DULoxetine HCl DR 60 MG CAP PO SCH ×2 (21:00→22:31)
[2016-10-19] MEDS ORDERED: levETIRAcetam INJ 500 MG in SODIUM CHLORIDE 0.9% INJ 100 ML IV ONE (23:15)
[2016-10-20] MEDS: LORazepam 2 MG/ML VIAL IV PUSH PRN (00:01)
[2016-10-20 04:07] VITALS: BP 164/73; PULSE 72; RESP 18; TEMP 98.3; O2SAT 92
[2016-10-20] MEDS: AMPICILLIN-SULBACTAM INJ 3 GM in SODIUM CHLORIDE 0.9% INJ 100 ML IV SCH ×4 (06:20→21:53)
[2016-10-20] MEDS: GABAPENTIN 300 MG CAP PO SCH ×4 (06:20→22:00)
[2016-10-20] MEDS: INSULIN NovoLIN REGULAR SUPPLEMENTAL SCALE SQ SCH ×4 (06:20→21:00)
[2016-10-20 08:28] VITALS: BP 176/79; PULSE 74; RESP 18; TEMP 96.4; O2SAT 98
[2016-10-20] MEDS: PANTOPRAZOLE SOD 40 MG DELAYED RELEASE TAB PO SCH (10:14)
[2016-10-20] MEDS: CARVEDILOL 3.125 MG TAB PO SCH ×3 (10:14→21:49)
[2016-10-20] MEDS: FINASTERIDE 5 MG TAB PO SCH (10:14)
[2016-10-20] MEDS: LISINOPRIL 20 MG TAB PO SCH (10:14)
[2016-10-20] MEDS: amLODIPine BESYLATE 5 MG TAB PO SCH (10:14)
[2016-10-20] MEDS: MONTELUKAST SODIUM 10 MG TAB PO SCH (10:14)
[2016-10-20] MEDS: DOCUSATE SODIUM 100 MG CAP PO SCH ×3 (10:14→21:49)
[2016-10-20] MEDS: FERROUS SULFATE 325 MG (65 MG ELEMENTAL IRON) TAB PO SCH ×3 (10:14→18:04)
[2016-10-20] MEDS: levETIRAcetam INJ 500 MG in SODIUM CHLORIDE 0.9% INJ 100 ML IV SCH ×2 (10:15→21:52)
[2016-10-20] MEDS: SODIUM CHLORIDE 0.9% FLUSH 5 ML FLUSH IVF SCH ×2 (10:15→21:55)
--- NOTE | 2016-10-20 11:14 | HHI.PR ---
Subjective Remarks Follow-up brain mass, cervical spine mass, confusion. Patient has no complaints at this time. He remains confused. Has been agitated and refusing meds at times. Objective Vitals Vital Signs Date Time Temp Pulse Resp B/P Pulse Ox O2 Delivery O2 Flow Rate FiO2 10/20/16 08:28 96.4 74 18 176/79 98 10/20/16 04:07 98.3 72 18 164/73 92 10/19/16 20:09 97.0 66 18 152/71 99 10/19/16 16:00 97.2 52 18 98/49 100 10/19/16 12:00 96.7 66 18 96/54 94 I/O 10/19/16 10/19/16 10/19/16 10/20/16 10/20/16 10/20/16 07:00 15:00 23:00 07:00 15:00 23:00 Intake Total 250 ml 360 ml 240 ml 497 ml Balance 250 ml 360 ml 240 ml 497 ml Intake Oral 360 ml 240 ml IV Total 250 ml 497 ml # Voids 3 2 1 # Bowel Movements 1 Imaging Last Impressions Chest CT 10/13/16 0000 Signed Impressions: Service Date/Time: Thursday, October 13, 2016 15:27 - CONCLUSION: I do not see evidence for a primary or metastatic disease to the chest. Subclavian vein stenosis on the right as described above. Chad Iqbal MD FACR Cervical Spine MRI 10/13/16 0000 Signed Impressions: Service Date/Time: Thursday, October 13, 2016 15:40 - CONCLUSION: 1. Exam degraded by motion artifact. Straightening of cervical lordosis with at least mild AP canal stenosis at every level between C2 and T1 and mild impressions on the anterior surface of the cord. Questionable small cord signal abnormality at C3-4, possibly edema or myelomalacia. Tom Bell MD Brain MRI 10/13/16 0000 Signed Impressions: Service Date/Time: Thursday, October 13, 2016 15:40 - CONCLUSION: 1. Enhancing 2.9 cm mass in right frontal lobe possibly associated with some hemorrhage with surrounding vasogenic edema and mild mass effect as above. 2. There are 2 small areas of signal abnormality in the left parietal lobe and left occipital lobe peripherally of uncertain etiology but possibly related to prior small infarcts. Tom Bell MD Abdomen/Pelvis CT 10/13/16 0000 Signed Impressions: Service Date/Time: Thursday, October 13, 2016 15:27 - CONCLUSION: I do not see evidence for primary neoplasm. Chad Iqbal MD FACR Head CT 10/11/162138 Signed Impressions: Service Date/Time: Tuesday, October 11, 2016 22:02 - CONCLUSION: Bifrontal vasogenic edema of concern for underlying mass(es), especially on the right. No hemorrhage or midline shift. Nonemergent MRI of the brain with and without contrast recommended. Russel Schofield MD Chest X-Ray 10/11/162138 Signed Impressions: Service Date/Time: Tuesday, October 11, 2016 22:12 - CONCLUSION: No evidence of acute cardiopulmonary disease. Russel Schofield MD Objective Remarks General: Elderly male in no acute distress. Heart: Regular rate and rhythm. No murmur. Lungs: Clear to auscultation bilaterally. No wheezes, rales, or rhonchi. Breathing is nonlabored. Abdomen: Soft, nontender, nondistended. Extremities: No lower extremity edema. Psych: Alert. Not oriented to month, city. Urinary Catheter: No Vascular Central Line Catheter: No A/P Problem List: (1) Brain tumor ICD Code: D49.6 Status: Acute (2) Encephalopathy ICD Code: G93.40 Status: Acute (3) Coronary artery disease ICD Code: I25.10 Status: Chronic (4) COPD (chronic obstructive pulmonary disease) ICD Code: J44.9 Status: Chronic (5) Diabetes ICD Code: E11.9 Status: Chronic (6) History of CVA (cerebrovascular accident) ICD Code: Z86.73 Status: Acute Assessment and Plan 1. Cranial mass, cervical mass: Likely metastatic. Patient does have history of melanoma. Appreciate neurosurgery and oncology recommendations. Not felt to be a good surgical candidate at this time. Appreciate palliative care recommendations as well. Hospice has been consulted. Continue Keppra for seizure prophylaxis. PT/OT/ST. 2. History of CVA with residual right upper extremity weakness: Xarelto on hold. 3. COPD: Chronic respiratory failure. On 2 L oxygen continuously. Continue bronchodilators as needed. 4. Diabetes mellitus type 2: Glipizide on hold. Monitor Accu-Cheks and cover with sliding scale insulin. 5. Hypertension: Continue lisinopril, Norvasc, Coreg. 6. Recent left shoulder fracture: Continue nonoperative treatment with physical therapy. Follow-up with orthopedic as outpatient. 7. Coronary artery disease: Patient has history of 2 stents and prior cardiac arrest. Patient is on Xarelto chronically, but that is currently on hold. Lipitor also on hold. 8. Chronic anemia: Stable. Continue iron sulfate. 9. UTI: Urine culture growing enterococcus. Continue antibiotics. 10. DVT prophylaxis: SCDs. 11. Poor prognosis. Recommendations made for comfort care measures based on neurosurgery and oncology recommendations. Family to consider hospice. They state that the patient wants to go home and that they would want the patient to go home instead of to rehabilitation or a care center. Appreciate palliative care assistance. Discharge Planning Possible discharge home with hospice soon. Jamaal Sanchez MD Oct 20, 2016 11:14
[2016-10-20 12:00] VITALS: BP 176/76; PULSE 65; RESP 18; TEMP 96.7; O2SAT 100
--- NOTE | 2016-10-20 14:03 | HHI.HCPN ---
Reason for visit a. To assist with evaluation and management of symptoms including: pain, confusion b. To assist medical decision maker(s) with: better understanding of current medical conditions; weighing benefits/burdens of medical treatment options; making medical treatment decisions. . Subjective/Interval History . Mr. Braxton is a 76-year-old male admitted 10/12/16 due to acute onset altered mental status and confusion, subsequently admitted to neurosurgery. ==Initial CT scan and MRI of the brain revealed right frontal lesions with moderate surrounding edema most consistent with metastatic disease. ==MRI of the cervical spine reveals abnormal signal intensity lesion upper cervical cord which is concerning for a metastatic lesion. ==CT scan chest and abdomen/pelvis on 10/13/16 showed no evidence of primary or metastatic disease. Recent left shoulder fracture being managed conservatively. He denies pain on exam, but endorsed moderate pain with movement. Tramadol available PRN - last received 10/19/16. Patient remains weak, able to stand at the side of his bed yesterday for 60 seconds per PT note. Oncology has been consulted. Given the patient's poor health and significant cognitive deficits, both Dr. Vides (oncology) and Dr. Romo (neurosurgery) agree he is not a good candidate for surgical resection/biopsy or any attempted therapy. Recommendations for comfort focused care. Hospice has met with the patient/family previously. Pt seen to follow up on comfort, goals. Patient presents lying in bed this morning, appears to sleeping. Arouses easily to verbal stimuli. The patient was able to tell me his name and knew he is in a hospital this morning. Later in the day, the patient was confused and agitated, refusing medications at times. Patient stating he was in [place] earlier when he spoke to the doctor, and demanding to speak to someone with the authority to discharge him home. Overall poor judgment and insight. Met with patient's at patient's bedside this afternoon. She would like to meet with hospice tomorrow morning and coordinate discharge home with hospice services. Again discussed the potential benefits of going to a hospice care center initially to assist with symptom management, but Dianne () states her has been and out of the hospitals and care home facilities for several months and it's "time to bring him home, that's all he wants". . Family/friend interactions Met with patient's at patient's bedside this afternoon. Discussed patient' s increased agitation and irritability and its likely relationship to disease progression. She would like to meet with hospice tomorrow morning and coordinate discharge home with hospice services. Again discussed the potential benefits of going to a hospice care center initially to assist with symptom management, but Dianne () states her has been and out of the hospitals and care home facilities for several months and it's "time to bring him home, that's all he wants". . Advance Directives Living Will: Never completed Health Care Surrogate: Never completed Durable Power of Clinical Supervisor: Never completed Advance Directive Specifics Significant change in goals: She would like to meet with hospice tomorrow morning and coordinate discharge home with hospice services. . Objective Vital Signs Date Time Temp Pulse Resp B/P Pulse Ox O2 Delivery O2 Flow Rate FiO2 10/20/16 12:00 96.7 65 18 176/76 100 10/20/16 11:28 98 Nasal Cannula 2.00 10/20/16 08:28 96.4 74 18 176/79 98 10/20/16 04:07 98.3 72 18 164/73 92 10/19/16 20:09 97.0 66 18 152/71 99 10/19/16 16:00 97.2 52 18 98/49 100 Intake & Output 10/20/16 10/20/16 07:00 19:00 Intake Total 737 ml Balance 737 ml Intake Oral 240 ml IV Total 497 ml # Voids 3 . Physical Exam . CONSTITUTIONAL/GENERAL: This is an adequately nourished patient, in no apparent distress. TUBES/LINES/DRAINS: PIV x1, SKIN: Large raised area of dark purple discoloration on his anterior right forearm. Skin temperature appropriate. Pale. HEAD: Atraumatic. Normocephalic. EYES: Moderate conjugate extraocular movements noted. No scleral icterus. ENT: Hearing grossly normal. Nose without bleeding or purulent drainage. NECK: Trachea midline. CARDIOVASCULAR: Regular rate and rhythm without murmurs, gallops, or rubs. RESPIRATORY/CHEST: Symmetric, unlabored respirations. No wheezes, rales, or rhonchi. GASTROINTESTINAL: Abdomen soft, non-tender, nondistended. No guarding. Bowel sounds present. GENITOURINARY: Without palpable bladder distension. MUSCULOSKELETAL: Extremities without clubbing, cyanosis, or edema. NEUROLOGICAL: Increasing confusing and agitation. Speech is nonsensical at times. Follows simple commands. Moves all extremities, persistently weak. . . Assessment and Plan Disease Oriented Problem List: (1) Altered mental status (2) Brain tumor (3) Elevated troponin I level (4) Myocardial infarction greater than 8 weeks ago (5) Shoulder fracture, left (6) History of CVA (cerebrovascular accident) (7) BPH (benign prostatic hyperplasia) (8) Hypertension (9) Peripheral vascular disease (10) Malignant melanoma (11) Diabetes (12) Coronary artery disease (13) COPD (chronic obstructive pulmonary disease) Symptom Scale: (1) Pain 0-10 Scale: Unable to quantify Comment: Possible causes of pain may include melanoma, recent left shoulder fracture, invasive lines, tumors, bedbound status, immobility, etc. Tramadol 50mg is available q6 hour PRN for pain. (2) Confusion 0-10 Scale: Unable to quantify (3) Agitation Pertinent Non-Medical Issues Psychosocial: Mr. Braxton was born in [place]. The patient was with 2 young children, twin boy and girl. His and he later his current , Dianne. They meet in [place]. She was a single mother of 3 boys. They have now been for approximately 33 years and live in [place]. Patient was in the [employer] and worked for the [employer]. He is now retired. Spiritual: Sikhism kavin Legal: Per [place] statutes, in the absence of written advanced directives healthcare proxy decision-making falls to the patient's Dianne Braxton Ethical issues impacting care: No known apical issues impacting care. . Important Contacts Dianne Braxton, spouse: [phone] Kortney Boland, daughter: [phone] . Prognosis Patient is a 76 year old male with an extensive medical history. History of malignant melanoma. Admitted with progressive confusion. Initial CT scan and MRI of the brain revealed right frontal lesions with moderate surrounding edema most consistent with metastatic disease. MRI of the cervical spine reveals abnormal signal intensity lesion upper cervical cord which is concerning for a metastatic lesion. Although neurosurgical resection of the mass would provide a definitive diagnosis and could also be therapeutic, given his poor health in significant cognitive deficits he is not a good candidate for surgical resection. Dr. Vides (oncology) and Dr. Romo (neurosurgery) agree this patient will likely not benefit from excision of mass, biopsy of mass or any attempted therapy. Poor prognosis. . Code Status: Full Code Plan * FULL CODE. * Decision-making: Per [place] statutes, in absence of written advanced directives healthcare proxy decision-making falls to the patient's Dianne Braxton. * Goals: Return home with hospice services. * Case management consulted to obtain medical records from [facility], admission date 09/20/16. * Discussion with Sr. Sanchez. * Phone call placed to patient's PCP Dr. Chloe Katz discuss possible discharge to hospice, message and contact information left with answering service. * Recommendations were made for comfort focused care based on neurosurgery and oncology recommendations. * Family refused hospice admission earlier previously. Now family stating they are not opposed to hospice, but the patient/family wants to go home instead of to rehabilitation or a care center. Discussed Patient's daughter (Anne Marie) states they have enough family and friends locally and willing to help. * Patient's would like to meet with hospice tomorrow morning and coordinate discharge home with hospice services. Again discussed the potential benefits of going to a hospice care center initially to assist with symptom management, but Dianne () states her has been and out of the hospitals and care home facilities for several months and it's "time to bring him home, that's all he wants". * Hospice admission nurse, annabelle Temple. Tentative meeting tomorrow 10/21/16 at 10am. * Symptom managementpain: Patient reporting pain in left shoulder, described as throbbing. Unable to rate pain in systole. Additional causes of pain may include melanoma, invasive lines, tumors, bedbound status, inability, etc. Tramadol 50mg is available q6 hour PRN for pain. Last administered on 10/19/16. * Symptom management- agitation: New onset agitation, likely related to disease progression/brain tumor. Recommendations to the patient on a low dose neuroleptic-Haldol PO 0.5mg [id number] PRN for agitation. * Palliative care will continue to follow this patient throughout his hospitalization to establish trust, assist with symptom and clarification of medical treatment goals. . Attestation To help prompt me to consider important information that might be impacting today's encounter and assessment, information from prior notes written by myself or my colleagues may have been "brought forward" into today's note. My signature on this note, however, is an attestation that I personally performed the exam, history, and/or decision-making noted today, and, unless otherwise indicated, the interactions with patient, family, and staff as well as the review of records all occurred today. I also attest that the listed assessment and stated plan reflect my best clinical judgment today based on the combination of historical information, prior notes, and today's exam/ interactions. When time spent is documented, it refers only to time spent today by the signer, or if indicated, combined time spent today by collaborating physician/nurse practitioner. . Lovely Altman Oct 20, 2016 14:03
[2016-10-20 16:26] VITALS: BP 185/85; PULSE 69; RESP 18; TEMP 96.1; O2SAT 100
[2016-10-20 20:00] VITALS: BP 174/75; PULSE 75; PULSE 79; RESP 19; TEMP 97.8; O2SAT 99
[2016-10-20] MEDS: DULoxetine HCl DR 60 MG CAP PO SCH ×2 (21:00→21:52)
--- NOTE | 2016-10-20 21:08 | HHI.NSPN ---
History Chief Complaint: no complaint Interval History 76-year-old male recently placed in alf facility following upper extremity fracture. Admitted 10/12/16 due to acute onset altered mental status and confusion. Initial CT scan and MRI brain revealed right frontal lesion with moderate surrounding edema most consistent with metastatic neoplasm. MRI cervical spine reveals abnormal signal intensity lesion upper cervical cord also suspicious for metastatic lesion. Patient's physical examination consistent with significant cervical myelopathy. CT scan chest abdomen and pelvis negative for primary disease. Patient with history of multiple skin squamous cell carcinomas with recent resection of scalp lesion . Exam Results Vital Signs Date Time Temp Pulse Resp B/P Pulse Ox O2 Delivery O2 Flow Rate FiO2 10/20/16 20:00 97.8 75 19 174/75 99 10/20/16 11:28 Nasal Cannula 2.00 10/18/16 12:22 21 Intake and Output 10/19/16 10/19/16 10/20/16 08:00 16:00 00:00 Intake Total 250 ml 360 ml 240 ml Balance 250 ml 360 ml 240 ml Physical Examination Patient in bed with head of bed up. Respirations clear to auscultation Cardiac regular without murmur Abdomen soft and nontender No significant lower extremity edema Awake and relatively alert Speech clear He knows that he is in the hospital. No some month, not the year Overall poor judgment and insight. He will follow simple commands Moderate conjugate extraocular movements Moves all extremities to command with persistent weakness proximal left upper extremity and distal right greater than left upper extremity with contractures right hand due to previous CVA. Lower extremity motor function mostly 3/5 proximal, 4/5 distal Moderate bilateral You's response and bilateral few beats ankle clonus. Medical Decision Making Impression and Plan Impression: 1. Right frontal lesion-most consistent with metastatic neoplasm 2. 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 History of squamous cell carcinoma of the skin with multiple lesions removed 4. COPD 5. Hypertension 6. Coronary artery disease 7. Peripheral neuropathy 8. History of BPH 9. Dyslipidemia 10. Type 2 diabetes 11. 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 The patient's and daughter met with palliative care.. It appears that they are agreeable to home hospice care. His exam continues to indicate significant myelopathy, consistent with MRI cervical spine findings. Discussed 10/14/[address] Vides, oncology, and 10/15/[address] Chloe Katz, primary care physician. Mental status stable to past couple of days Patient with relatively poor functional status. Diabetes: Continuing sliding scale insulin Hypertension: Continuing home medications Previous CVA: Xarelto held due to probable small amount of hemorrhage at the right frontal brain lesion Santy Romo MD Oct 20, 2016 21:08
[2016-10-20 21:42] VITALS: O2SAT 98
[2016-10-20] MEDS: D5-NS + KCL 20 MEQ INJ 1,000 ML IV SCH (21:54)
[2016-10-21] VITALS: BP 184/88; PULSE 94; RESP 20; TEMP 98.3; O2SAT 98
[2016-10-21 04:00] VITALS: BP 192/85; PULSE 91; RESP 20; TEMP 98.9; O2SAT 96
[2016-10-21] MEDS: GABAPENTIN 300 MG CAP PO SCH ×2 (05:11→14:00)
[2016-10-21] MEDS: INSULIN NovoLIN REGULAR SUPPLEMENTAL SCALE SQ SCH ×2 (05:12→11:00)
[2016-10-21] MEDS: AMPICILLIN-SULBACTAM INJ 3 GM in SODIUM CHLORIDE 0.9% INJ 100 ML IV SCH ×2 (05:12→11:22)
[2016-10-21 07:54] VITALS: O2SAT 96
[2016-10-21 08:00] VITALS: BP 148/69; PULSE 76; RESP 18; TEMP 98.1; O2SAT 98
[2016-10-21] MEDS: MONTELUKAST SODIUM 10 MG TAB PO SCH (08:52)
[2016-10-21] MEDS: FINASTERIDE 5 MG TAB PO SCH (08:52)
[2016-10-21] MEDS: CARVEDILOL 3.125 MG TAB PO SCH (08:52)
[2016-10-21] MEDS: FERROUS SULFATE 325 MG (65 MG ELEMENTAL IRON) TAB PO SCH ×2 (08:52→13:00)
[2016-10-21] MEDS: LISINOPRIL 20 MG TAB PO SCH (08:52)
[2016-10-21] MEDS: DOCUSATE SODIUM 100 MG CAP PO SCH (08:52)
[2016-10-21] MEDS: PANTOPRAZOLE SOD 40 MG DELAYED RELEASE TAB PO SCH (08:52)
[2016-10-21] MEDS: amLODIPine BESYLATE 5 MG TAB PO SCH (08:52)
[2016-10-21] MEDS: levETIRAcetam INJ 500 MG in SODIUM CHLORIDE 0.9% INJ 100 ML IV SCH (08:53)
[2016-10-21] MEDS: SODIUM CHLORIDE 0.9% FLUSH 5 ML FLUSH IVF SCH (09:00)
[2016-10-21 11:45] VITALS: BP 195/93; PULSE 76; RESP 18; TEMP 99; O2SAT 96
[2016-10-21] MEDS: cloNIDine HCL 0.1 MG TAB PO PRN (12:33)
--- NOTE | 2016-10-21 12:35 | HHI.DCPOC ---
Discharge Care Plan Diagnosis: (1) Altered mental status (2) Brain tumor Your Health Problems Are: Difficulty with ADL Exercise Tolerance Goals to Promote Your Health * To prevent worsening of your condition and complications * To maintain your health at the optimal level Directions to Meet Your Goals Take your medications as prescribed Follow your dietary instruction Follow activity as directed Keep your appointments as scheduled Take your immunizations and boosters as scheduled If your symptoms worsen call your PCP, if no PCP go to Urgent Care Center or Emergency Room Smoking is Dangerous to Your Health. Avoid second hand smoke Call the 24-hour hour crisis hotline for domestic abuse at Santy Romo MD Oct 21, 2016 12:34
--- NOTE | 2016-10-21 12:36 | HHI.DS ---
Discharge Summary Admission Date Oct 12, 2016 at 00:25 Discharge Date: Oct 21, 2016 Admitting Diagnosis altered mental status, brain tumor, elevated troponin I (1) Brain tumor Diagnosis: Principal (2) Encephalopathy Diagnosis: Secondary (3) Coronary artery disease Diagnosis: Secondary (4) COPD (chronic obstructive pulmonary disease) Diagnosis: Secondary (5) Diabetes Diagnosis: Secondary (6) History of CVA (cerebrovascular accident) Diagnosis: Secondary Brief History 76-year-old male transferred to [facility] emergency room due to onset of confusion today. Patient has been at [facility] due to a upper extremity fracture. Positive history of diabetes and COPD. History of melanoma. He complains of progressive numbness in his upper extremities. Also progressive gait difficulty. He feels off balance when he ambulates, but no vertigo. He denies any recent falls. He complains of a primarily right frontal headache. No significant dizziness. No blurred vision or diplopia. Imaging Last Impressions Chest CT 10/13/16 0000 Signed Impressions: Service Date/Time: Thursday, October 13, 2016 15:27 - CONCLUSION: I do not see evidence for a primary or metastatic disease to the chest. Subclavian vein stenosis on the right as described above. Chad Iqbal MD FACR Cervical Spine MRI 10/13/16 0000 Signed Impressions: Service Date/Time: Thursday, October 13, 2016 15:40 - CONCLUSION: 1. Exam degraded by motion artifact. Straightening of cervical lordosis with at least mild AP canal stenosis at every level between C2 and T1 and mild impressions on the anterior surface of the cord. Questionable small cord signal abnormality at C3-4, possibly edema or myelomalacia. Tom Bell MD Brain MRI 10/13/16 0000 Signed Impressions: Service Date/Time: Thursday, October 13, 2016 15:40 - CONCLUSION: 1. Enhancing 2.9 cm mass in right frontal lobe possibly associated with some hemorrhage with surrounding vasogenic edema and mild mass effect as above. 2. There are 2 small areas of signal abnormality in the left parietal lobe and left occipital lobe peripherally of uncertain etiology but possibly related to prior small infarcts. Tom Bell MD Abdomen/Pelvis CT 10/13/16 0000 Signed Impressions: Service Date/Time: Thursday, October 13, 2016 15:27 - CONCLUSION: I do not see evidence for primary neoplasm. Chad Iqbal MD FACR Head CT 10/11/162138 Signed Impressions: Service Date/Time: Tuesday, October 11, 2016 22:02 - CONCLUSION: Bifrontal vasogenic edema of concern for underlying mass(es), especially on the right. No hemorrhage or midline shift. Nonemergent MRI of the brain with and without contrast recommended. Russel Schofield MD Chest X-Ray 10/11/162138 Signed Impressions: Service Date/Time: Tuesday, October 11, 2016 22:12 - CONCLUSION: No evidence of acute cardiopulmonary disease. Russel Schofield MD Pt Condition on Discharge: Stable Discharge Disposition: Hospice/ Home Discharge Instructions DIET: Follow Instructions for: As Tolerated, No Restrictions ACTIVITIES You can perform: Weight Bearing As [place] Activities to Avoid: Lifting/Bending, Prolonged Standing, Strenuous Activity ADDITIONAL Activity Instructio: ACTIVITY TOLERATED Continued Medications: Acetaminophen (Tylenol) 325 Mg Tab 650 MG PO Q4H PRN PAIN SCALE 1 TO 10 Ref 0 TAB Atorvastatin (Lipitor) 10 Mg Tab 10 MG PO HS Cholesterol Management #30 Ref 0 TAB Carvedilol (Coreg) 3.125 Mg Tab 3.125 MG PO Q12HR #60 Ref [address] (Cymbalta DR) 60 Mg Capdr 60 MG PO HS #30 Ref 0 CAP Famotidine (Famotidine) 20 Mg Tab 20 MG PO DAILY #60 Ref 0 TAB Ferrous Sulfate (Ferrous Sulfate) 325 Mg Tab 325 MG PO TID Nutritional Supplement #30 Ref 0 TAB Finasteride (Finasteride) 5 Mg Tab 5 MG PO DAILY Do not crush. Manage Prostate Problems #30 Ref 0 TAB Gabapentin (Gabapentin) 300 Mg Cap 300 MG PO Q8HR #90 Ref 0 CAP Glipizide (Glipizide) 5 Mg Tab 5 MG PO DAILY Take 30 minutes before a meal Blood Sugar Management #30 Ref 0 TAB Ipratropium-Albuterol Neb (Duoneb) 0.5-2.5 Mg/3 Ml Neb 1 NEBULE INH Q6HR NEB Breathing Treatment #120 Ref 0 NEBULE Ipratropium-Albuterol Neb (Duoneb) 0.5-2.5 Mg/3 Ml Neb 1 NEBULE INH Q6HR NEB Breathing Treatment #120 Ref 0 NEBULE Levetiracetam (Keppra) 500 Mg Tab 500 MG PO Q12HR Control Seizures #60 Ref 0 TAB Lisinopril (Lisinopril) 5 Mg Tab 5 MG PO DAILY Blood Pressure Management #30 Ref 0 TAB Montelukast (Singulair) 10 Mg Tab 10 MG PO DAILY Allergies #30 Ref 0 TAB Polyvinyl Alcohol Opth Drops (Artificial Tears Opth Drops) 1.4% Soln 1-2 DROP EACH EYE Q8HR PRN DRY EYE Ref 0 BOTTLE Tiotropium Inh (Spiriva Handihaler) 18 Mcg Cap 18 MCG INH DAILY 1 capsule = 18 mcg COPD #30 Ref 0 CAP Tramadol (Tramadol) 50 Mg Tab 50 MG PO Q6H PRN PAIN Ref 0 TAB Discontinued Medications: Rivaroxaban (Xarelto) 10 Mg Tab 10 MG PO DAILY Blood Clot Prevention Ref 0 TAB Santy Romo MD Oct 21, 2016 12:36
--- NOTE | 2016-10-21 15:03 | HHI.HCPN ---
Reason for visit a. To assist with evaluation and management of symptoms including: pain, confusion, agitation b. To assist medical decision maker(s) with: better understanding of current medical conditions; weighing benefits/burdens of medical treatment options; making medical treatment decisions. . Subjective/Interval History . Mr. Braxton is a 76-year-old male admitted 10/12/16 due to acute onset altered mental status and confusion, subsequently admitted to neurosurgery. ==Initial CT scan and MRI of the brain revealed right frontal lesions with moderate surrounding edema most consistent with metastatic disease. ==MRI of the cervical spine reveals abnormal signal intensity lesion upper cervical cord which is concerning for a metastatic lesion. ==CT scan chest and abdomen/pelvis on 10/13/16 showed no evidence of primary or metastatic disease. Oncology has been consulted. Given the patient's poor health and significant cognitive deficits, both Dr. Vides (oncology) and Dr. Romo (neurosurgery) agree he is not a good candidate for surgical resection/biopsy or any attempted therapy. Recommendations for comfort focused care. Pt seen to follow up on comfort, goals. Recent left shoulder fracture being managed conservatively, reporting moderate pain with movement. Reporting right frontal headache. Remains weak, intermittently confused and irritable. Progressively worsening gait and poor balance. Patient returning home with hospice services for symptom management and EOL care. . Advance Directives Living Will: Never completed Health Care Surrogate: Never completed Durable Power of Correctional Therapy Director: Never completed Objective Vital Signs Date Time Temp Pulse Resp B/P Pulse Ox O2 Delivery O2 Flow Rate FiO2 10/21/16 11:45 99.0 76 18 195/93 96 10/21/16 09:01 98 Nasal Cannula 2.00 10/21/16 08:00 98.1 76 18 148/69 98 10/21/16 07:54 96 Nasal Cannula 2.00 10/21/16 04:00 98.9 91 20 192/85 96 10/21/16 00:00 98.3 94 20 184/88 98 10/20/16 21:42 98 Nasal Cannula 2.00 10/20/16 20:00 97.8 75 19 174/75 99 10/20/16 20:00 Nasal Cannula 2.00 10/20/16 20:00 79 10/20/16 16:26 96.1 69 18 185/85 100 Intake & Output 10/21/16 10/21/16 07:00 19:00 Intake Total 120 ml Output Total 600 ml Balance -480 ml Intake Oral 120 ml Output Urine Total 600 ml # Voids 4 # Bowel Movements 0 . Physical Exam . CONSTITUTIONAL/GENERAL: This is an adequately nourished patient, in no apparent distress. SKIN: Large raised area of dark purple discoloration on his anterior right forearm. Skin temperature appropriate. Pale. HEAD: Atraumatic. Normocephalic. EYES: Moderate conjugate extraocular movements noted. . ENT: Hearing grossly normal. Nose without bleeding or purulent drainage. NECK: Trachea midline. CARDIOVASCULAR: Regular rate and rhythm without murmurs, gallops, or rubs. RESPIRATORY/CHEST: Symmetric, unlabored respirations. No wheezes, rales, or rhonchi. GASTROINTESTINAL: Abdomen soft, non-tender, nondistended. Bowel sounds present. GENITOURINARY: Without palpable bladder distension. MUSCULOSKELETAL: Extremities without clubbing or cyanosis. No obvious deformities. NEUROLOGICAL: Increasing confusing and agitation. Speech is nonsensical at times. Follows simple commands. Moves all extremities, persistently weak. . . Assessment and Plan Disease Oriented Problem List: (1) Altered mental status (2) Brain tumor (3) Elevated troponin I level (4) Myocardial infarction greater than 8 weeks ago (5) Shoulder fracture, left (6) History of CVA (cerebrovascular accident) (7) BPH (benign prostatic hyperplasia) (8) Hypertension (9) Peripheral vascular disease (10) Malignant melanoma (11) Diabetes (12) Coronary artery disease (13) COPD (chronic obstructive pulmonary disease) Symptom Scale: (1) Pain 0-10 Scale: Unable to quantify Comment: Possible causes of pain may include melanoma, recent left shoulder fracture, invasive lines, tumors, bedbound status, immobility, etc. Reporting new-onset right frontal headache. Tramadol 50mg is available q6 hour PRN for pain. (2) Confusion 0-10 Scale: Unable to quantify (3) Agitation Pertinent Non-Medical Issues Psychosocial: Mr. Braxton was born in [place]. The patient was with 2 young children, twin boy and girl. His and he later his current , Dianne. They meet in [place]. She was a single mother of 3 boys. They have now been for approximately 33 years and live in [place]. 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 Spiritual: [employer] kavin Legal: Per [place] statutes, in the absence of written advanced directives healthcare proxy decision-making falls to the patient's Dianne Braxton Ethical issues impacting care: No known apical issues impacting care. . Important Contacts Dianne Braxton, spouse: [phone] Kortney Boland, daughter: [phone] . Prognosis Patient is a 76 year old male with an extensive medical history. History of malignant melanoma. Admitted with progressive confusion. Initial CT scan and MRI of the brain revealed right frontal lesions with moderate surrounding edema most consistent with metastatic disease. MRI of the cervical spine reveals abnormal signal intensity lesion upper cervical cord which is concerning for a metastatic lesion. Although neurosurgical resection of the mass would provide a definitive diagnosis and could also be therapeutic, given his poor health in significant cognitive deficits he is not a good candidate for surgical resection. Dr. Vides (oncology) and Dr. Romo (neurosurgery) agree this patient will likely not benefit from excision of mass, biopsy of mass or any attempted therapy. Poor prognosis. . Code Status: Full Code Plan * FULL CODE. * Decision-making: Per [place] statutes, in absence of written advanced directives healthcare proxy decision-making falls to the patient's Dianne Braxton. * Goals: Return home with hospice services. * Discussion with Sr. Sanchez. * Recommendations were made for comfort focused care based on neurosurgery and oncology recommendations. * Hospice admission nurse, annabelle Garcia. * Met with hospice this morning 10/21/15. Patient returning home with hospice services for symptom management and EOL care. * Symptom managementpain: Patient reporting pain in left shoulder, described as throbbing. Unable to rate pain in systole. Additional causes of pain may include melanoma, invasive lines, tumors, bedbound status, inability, etc. Patient reporting new-onset right fromtal headache.Tramadol 50mg is available q6 hour PRN for pain. Last administered on 10/19/16. * Symptom management- agitation: New onset agitation, likely related to disease progression/brain tumor. Recommendations to the patient on a low dose neuroleptic-Haldol PO 0.5mg [id number] PRN for agitation. * Palliative care will continue to follow this patient throughout his hospitalization to establish trust, assist with symptom and clarification of medical treatment goals. . Lovely Altman Oct 21, 2016 15:03 include melanoma, invasive lines, tumors, bedbound status, inability, etc. Tramadol 50mg is available q6 hour PRN for pain. Last administered on 10/19/16. * Symptom management- agitation: New onset agitation, likely related to disease progression/brain tumor. Recommendations to the patient on a low dose neuroleptic-Haldol PO 0.5mg [id number] PRN for agitation. * Palliative care will continue to follow this patient throughout his hospitalization to establish trust, assist with symptom and clarification of medical treatment goals. . Lovely Altman Oct 21, 2016 15:03
--- NOTE | 2016-10-21 18:24 | HHI.NSPN ---
History Chief Complaint: no complaint Interval History 76-year-old male recently placed in alf facility following upper extremity fracture. Admitted 10/12/16 due to acute onset altered mental status and confusion. Initial CT scan and MRI brain revealed right frontal lesion with moderate surrounding edema most consistent with metastatic neoplasm. MRI cervical spine reveals abnormal signal intensity lesion upper cervical cord also suspicious for metastatic lesion. Patient's physical examination consistent with significant cervical myelopathy. CT scan chest abdomen and pelvis negative for primary disease. Patient with history of multiple skin squamous cell carcinomas with recent resection of scalp lesion . Exam Results Vital Signs Date Time Temp Pulse Resp B/P Pulse Ox O2 Delivery O2 Flow Rate FiO2 10/21/16 11:45 99.0 76 18 195/93 96 10/21/16 09:01 Nasal Cannula 2.00 10/18/16 12:22 21 Intake and Output 10/20/16 10/20/16 10/21/16 08:00 16:00 00:00 Intake Total 497 ml 360 ml 60 ml Output Total 300 ml 600 ml Balance 497 ml 60 ml -540 ml Physical Examination Patient in bed with head of bed up. Respirations clear to auscultation Cardiac regular without murmur Abdomen soft and nontender No significant lower extremity edema Awake and relatively alert Speech clear His is in the room with him. She states that he remains very confused. Patient will say a few short sentences. Overall poor judgment and insight. He will follow simple commands Moderate conjugate extraocular movements Moves all extremities to command with persistent weakness proximal left upper extremity and distal right greater than left upper extremity with contractures right hand due to previous CVA. Lower extremity motor function appears within normal limits today Moderate bilateral You's response and bilateral few beats ankle clonus. Medical Decision Making Impression and Plan Impression: 1. Right frontal lesion-most consistent with metastatic neoplasm 2. 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 History of squamous cell carcinoma of the skin with multiple lesions removed 4. COPD 5. Hypertension 6. Coronary artery disease 7. Peripheral neuropathy 8. History of BPH 9. Dyslipidemia 10. Type 2 diabetes 11. 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 Option of palliative care-hospice versus surgical intervention and treatment of the brain and spinal cord lesion have been discussed. She acknowledges that the patient has been doing very poorly for the past few months, and remains very confused. I advised her that even with successful treatment of the lesions, it is likely that he would remain very compromised and unable to participate in a meaningful way. Although his judgment and insight are likely significantly compromised, the patient upon discussion with his today in the room, acknowledges that he does not wish any surgical intervention or other invasive measures. He would like to go home. Discussed with case management today. Plan discharge home with hospice. Santy Romo MD Oct 21, 2016 18:24
== END 2016-10-21 15:14 | disposition hospice, home (50) | DRG 54 ==
LOC: PHED 20:51 → PHEDA 10-12 00:25 → PHEDH 10-12 04:25 → N05B 10-12 20:32
PROVIDERS: ADMIT Neurological Surgery; ATTEND Neurological Surgery
DX: C79.31 Secondary malignant neoplasm of brain (principal); G93.6 Cerebral edema; G93.40 Encephalopathy, unspecified; C79.89 Secondary malignant neoplasm of other specified sites; J96.10 Chronic respiratory failure, unspecified whether with hypoxia or hypercapnia; E11.22 Type 2 diabetes mellitus with diabetic chronic kidney disease; C43.61 Malignant melanoma of right upper limb, including shoulder; B95.2 Enterococcus as the cause of diseases classified elsewhere; G95.9 Disease of spinal cord, unspecified; N39.0 Urinary tract infection, site not specified; D64.9 Anemia, unspecified; E11.42 Type 2 diabetes mellitus with diabetic polyneuropathy; I12.9 Hypertensive chronic kidney disease with stage 1 through stage 4 chronic kidney disease, or unspecified chronic kidney disease; E11.649 Type 2 diabetes mellitus with hypoglycemia without coma; Z99.81 Dependence on supplemental oxygen; J44.9 Chronic obstructive pulmonary disease, unspecified; I25.10 Atherosclerotic heart disease of native coronary artery without angina pectoris; R74.8 Abnormal levels of other serum enzymes; N18.9 Chronic kidney disease, unspecified; E78.00 Pure hypercholesterolemia, unspecified; G47.33 Obstructive sleep apnea (adult) (pediatric); E78.5 Hyperlipidemia, unspecified; G30.9 Alzheimer's disease, unspecified; F02.80 Dementia in other diseases classified elsewhere, unspecified severity, without behavioral disturbance, psychotic disturbance, mood disturbance, and anxiety; F43.10 Post-traumatic stress disorder, unspecified; M19.90 Unspecified osteoarthritis, unspecified site; F32.9 Major depressive disorder, single episode, unspecified; I69.331 Monoplegia of upper limb following cerebral infarction affecting right dominant side; K21.9 Gastro-esophageal reflux disease without esophagitis; M10.9 Gout, unspecified; R47.02 Dysphasia; I25.2 Old myocardial infarction; G40.909 Epilepsy, unspecified, not intractable, without status epilepticus; G20 Parkinson's disease; Z87.891 Personal history of nicotine dependence; N40.0 Benign prostatic hyperplasia without lower urinary tract symptoms; Z95.5 Presence of coronary angioplasty implant and graft; Z85.820 Personal history of malignant melanoma of skin; Z79.84 Long term (current) use of oral hypoglycemic drugs; Z86.74 Personal history of sudden cardiac arrest; Z79.02 Long term (current) use of antithrombotics/antiplatelets; R63.3 Feeding difficulties; Z51.5 Encounter for palliative care; Z86.19 Personal history of other infectious and parasitic diseases; R20.0 Anesthesia of skin
CPT/HCPCS: 70450; 70553; 71020; 71260; 72141; 74177; 80048; 80053; 81001; 82550; 82948; 84484; 85025; 85730; 87077; 87086; 87186; 93005; 94150; 94640; 94664; A9579; J0295; J0696; J1953; J2060; J3480; P9612; Q9963; Q9967